=== PATIENT | female | born 1975 | race Hispanic/Latino ===

== ENCOUNTER → 2021-06-09 | Outpatient (CLI) | payer OTHER | END | disposition home or self-care (01) | LOC: RAH 07:58 | PROVIDERS: ATTEND Internal Medicine | DX: K80.20 Calculus of gallbladder without cholecystitis without obstruction (principal); K76.0 Fatty (change of) liver, not elsewhere classified | CPT/HCPCS: 76705 ==

== ENCOUNTER 2021-10-21 19:45 | Emergency (ER) | payer OTHER ==
[~2021-10-21] VITALS: Ht 154.9 cm; Wt 102.5 kg
[2021-10-21] MEDS ORDERED: NAPROXEN 250 MG TAB PO ONE (21:00)
[2021-10-21] MEDS ORDERED: CYCLOBENZAPRINE HCL 10 MG TABLET PO ONE (21:00)
[2021-10-21] MEDS ORDERED: CYCL-309 PO (22:46)
[2021-10-21] MEDS ORDERED: MELO7.5T12 PO (22:46)
[2021-10-21 22:55] VITALS: BP 129/73
== END 2021-10-21 22:56 | disposition home or self-care (01) ==
LOC: EDH 19:45
DX: S16.1XXA Strain of muscle, fascia and tendon at neck level, initial encounter (principal); S39.012A Strain of muscle, fascia and tendon of lower back, initial encounter; J45.909 Unspecified asthma, uncomplicated; Z79.1 Long term (current) use of non-steroidal anti-inflammatories (NSAID); V49.49XA Driver injured in collision with other motor vehicles in traffic accident, initial encounter; Y93.89 Activity, other specified; Y92.89 Other specified places as the place of occurrence of the external cause; Y99.8 Other external cause status
CPT/HCPCS: 70450; 71045; 72125; 72131

== ENCOUNTER 2022-07-02 20:59 | Emergency (ER) | payer BC, OTHER ==
[~2022-07-02] VITALS: Ht 154.9 cm; Wt 103.4 kg
[~2022-07-02 20:59] MED LIST: CYCL-309 PO; MELO7.5T12 PO
[2022-07-02 21:01] VITALS: BP 124/81
[2022-07-02] MEDS ORDERED: CLINDAMYCIN 150 MG CAP PO ONE (21:30)
[2022-07-02] MEDS ORDERED: CLIN-141 PO (21:33)
== END 2022-07-02 21:46 | disposition home or self-care (01) ==
LOC: EDH 20:59
DX: L03.211 Cellulitis of face (principal); J45.909 Unspecified asthma, uncomplicated; K21.9 Gastro-esophageal reflux disease without esophagitis; Z79.1 Long term (current) use of non-steroidal anti-inflammatories (NSAID)

== ENCOUNTER 2022-08-10 00:21 | Emergency (ER) | payer BC, OTHER ==
[~2022-08-10] VITALS: Ht 154.9 cm; Wt 102.5 kg
[~2022-08-10 00:21] MED LIST changes: +CLIN-141 PO
[2022-08-10 00:53] LABS: BASOPHILS % (AUTO) 0.6 % (0.0-5.0); EOSINOPHILS % (AUTO) 2.4 % (0.0-8.0); HEMATOCRIT 41.3 % (36-48); MEAN CORPUSCULAR HEMOGLOBIN 28.9 pg (27.0-33.0); MEAN CORPUSCULAR HGB CONC 33.7 g/dL (32.0-36.0); MEAN CORPUSCULAR VOLUME 85.9 fL (79-99); MONOCYTES % (AUTO) 9.2 % (3.0-13.0); NEUTROPHILS % (AUTO) 50.6 % (40.0-77.0); PLATELET COUNT (AUTO) 234 K/uL (130-400); RED BLOOD CELL COUNT(AUTO) 4.81 MIL/uL (4.00-5.50); RED CELL DISTRIBUTION WIDTH 13.2 % (11.0-15.5); WHITE BLOOD COUNT (AUTO) 9.1 K/uL (4.8-10.8)
[2022-08-10 00:54] LABS: APPEARANCE,URINE CLOUDY (CLEAR); BILIRUBIN,URINE NEGATIVE (NEGATIVE); COLOR,URINE YELLOW (YELLOW); GLUCOSE, URINE (UA) NEGATIVE (NEGATIVE); KETONES,URINE NEGATIVE (NEGATIVE); LEUKOCYTE ESTERASE ,URINE 500 Leu/uL (NEGATIVE); NITRATE,URINE NEGATIVE (NEGATIVE); OCCULT BLOOD,URINE MODERATE (NEGATIVE); PROTEIN,URINE 10 mg/dL (NEGATIVE); UROBILINOGEN,URINE 0.2 mg/dL (0.2-1.0)
[2022-08-10 01:00] LABS: MUCUS,URINE RARE LPF (None Seen); SQUAMOUS EPITHELIAL CELL,UR FEW /HPF (0-2); WBC,URINE TNTC /HPF (0-1)
[2022-08-10 01:06] LABS: POTASSIUM 4.8 mmol/L (3.5-5.1)
[2022-08-10 01:11] LABS: ALBUMIN 3.5 g/dL (3.5-5.0); TOTAL PROTEIN, SERUM 7.4 g/dL (6.0-8.3)
[2022-08-10 01:12] LABS: BACTERIA,URINE Rare /HPF (None Seen)
[2022-08-10] MEDS ORDERED: NITROFURANTOIN MONOHYD/M-CRYST 100 MG CAPSULE PO ONE (02:00)
[2022-08-10] MEDS ORDERED: PHENAZOPYRIDINE HCL 200 MG TABLET PO ONE (02:00)
[2022-08-10] MEDS ORDERED: MACR100 PO (02:03)
[2022-08-10] MEDS ORDERED: PHEN-847 PO (02:03)
[2022-08-10 02:07] VITALS: BP 124/77
== END 2022-08-10 02:12 | disposition home or self-care (01) ==
LOC: EDH 00:21
DX: N39.0 Urinary tract infection, site not specified (principal); J45.909 Unspecified asthma, uncomplicated; Z79.1 Long term (current) use of non-steroidal anti-inflammatories (NSAID)
CPT/HCPCS: 36415; 80053; 81001; 85025; 87088

== ENCOUNTER 2024-09-02 17:31 | Emergency (ER) | payer SELFPAY ==
[~2024-09-02] VITALS: Ht 154.9 cm; Wt 109.8 kg
[~2024-09-02 17:31] MED LIST changes: +MACR100 PO; +PHEN-847 PO
[2024-09-02 17:59] LABS: BASOPHILS # (AUTO) 0.02 K/uL (0.00-0.20); BASOPHILS % (AUTO) 0.2 % (0.0-5.0); EOSINOPHILS # (AUTO) 0.35 K/uL (0.00-0.70); EOSINOPHILS % (AUTO) 3.7 % (0.0-8.0); HEMATOCRIT 41.5 % (36-48); IMMATURE GRANULOCYTE ABSOLUTE 0.03 K/uL (0-1); LYMPHOCYTES # (AUTO) 1.7 K/uL (1.0-4.8); LYMPHOCYTES % (AUTO) 17.9 % (21.0-51.0); MEAN CORPUSCULAR HEMOGLOBIN 29.3 pg (27.0-33.0); MEAN CORPUSCULAR HGB CONC 32.8 g/dL (32.0-36.0); MEAN CORPUSCULAR VOLUME 89.4 fL (79-99); MONOCYTES # (AUTO) 0.5 K/uL (0.1-1.0); MONOCYTES % (AUTO) 5.7 % (3.0-13.0); NEUTROPHILS # (AUTO) 6.8 K/uL (1.8-7.7); NEUTROPHILS % (AUTO) 72.2 % (40.0-77.0); PLATELET COUNT (AUTO) 202 K/uL (130-400); RED BLOOD CELL COUNT(AUTO) 4.64 MIL/uL (4.00-5.50); RED CELL DISTRIBUTION WIDTH 13.5 % (11.0-15.5); WHITE BLOOD COUNT (AUTO) 9.5 K/uL (4.8-10.8)
[2024-09-02 18:12] LABS: CREATININE 0.8 mg/dL (0.5-1.0); POTASSIUM 4.2 mmol/L (3.5-5.1)
[2024-09-02 18:17] LABS: SARS-CoV-2, RNA, NAAT NEGATIVE SARS CoV-2 (NEGATIVE)
[2024-09-02 18:22] LABS: INFLUENZA TYPE A Negative For Type A (NEGATIVE); INFLUENZA TYPE B Negative For Type B (NEGATIVE)
[2024-09-02] MEDS: Solu-medROL 125MG VIAL IVP ONE (18:25)
[2024-09-02 19:09] VITALS: PULSE 72; RESP 21
[2024-09-02] MEDS: IpraTROPium/alBUTERol SULFATE 3 ML SOLUTION IH ONE (19:09)
[2024-09-02] MEDS ORDERED: BENZ-39 PO (20:16)
[2024-09-02] MEDS ORDERED: AZIT250T9 PO (20:16)
[2024-09-02] MEDS ORDERED: METH4TAB3 PO (20:16)
[2024-09-02 21:13] VITALS: BP 106/59; PULSE 70; RESP 18; TEMP 98.5; O2SAT 97
== END 2024-09-02 21:23 | disposition home or self-care (01) ==
LOC: EDH 17:31
DX: J18.9 Pneumonia, unspecified organism (principal); J45.909 Unspecified asthma, uncomplicated; Z79.1 Long term (current) use of non-steroidal anti-inflammatories (NSAID); Z20.822 Contact with and (suspected) exposure to COVID-19
CPT/HCPCS: 99285; 96374; 71045; 87635; 80048; 85025; 87804 ×2; 36415; 93005; 94640; J2919

== ENCOUNTER 2025-01-02 06:49 | Inpatient (IN) | payer BC ==
[~2025-01-02] VITALS: Ht 162.6 cm; Wt 90.9 kg
[~2025-01-02 06:49] MED LIST changes: +AZIT250T9 PO; +BENZ-39 PO; +METH4TAB3 PO
[2025-01-02] MEDS: ibuPROFEN 600 MG TABLET PO ONE (07:35)
[2025-01-02 07:37] LABS: COVID19 (SARS ANTIGEN RAPID) PRESUMPTIVE NEGATIVE (NEGATIVE); INFLUENZA TYPE B Negative For Type B (NEGATIVE)
[2025-01-02 07:38] LABS: HEMATOCRIT 44.2 % (36-48); MEAN CORPUSCULAR HEMOGLOBIN 28.8 pg (27.0-33.0); MEAN CORPUSCULAR HGB CONC 32.4 g/dL (32.0-36.0); MEAN CORPUSCULAR VOLUME 89.1 fL (79-99); PLATELET COUNT (AUTO) 181 K/uL (130-400); RED BLOOD CELL COUNT(AUTO) 4.96 MIL/uL (4.00-5.50); RED CELL DISTRIBUTION WIDTH 13.6 % (11.0-15.5); WHITE BLOOD COUNT (AUTO) 10.8 K/uL (4.8-10.8)
[2025-01-02 07:41] LABS: CARBON DIOXIDE 32 mmol/L (21-32); CHLORIDE 99 mmol/L (101-111); GLOMERULAR FILTR. RATE CALC 69 mL/min (>90); GLUCOSE,RANDOM 141 mg/dL (70-105); POTASSIUM 3.7 mmol/L (3.5-5.1); SODIUM SERUM 137 mmol/L (136-145); UREA NITROGEN, BLOOD 8 mg/dL (7-18)
[2025-01-02 07:42] LABS: BASOPHILS # (AUTO) 0.02 K/uL (0.00-0.20); BASOPHILS % (AUTO) 0.2 % (0.0-5.0); EOSINOPHILS # (AUTO) 0.05 K/uL (0.00-0.70); EOSINOPHILS % (AUTO) 0.5 % (0.0-8.0); IMMATURE GRANULOCYTE ABSOLUTE 0.06 K/uL (0-1); LYMPHOCYTES # (AUTO) 1.5 K/uL (1.0-4.8); LYMPHOCYTES % (AUTO) 13.8 % (21.0-51.0); MONOCYTES # (AUTO) 0.9 K/uL (0.1-1.0); MONOCYTES % (AUTO) 8.6 % (3.0-13.0); NEUTROPHILS # (AUTO) 8.4 K/uL (1.8-7.7); NEUTROPHILS % (AUTO) 76.4 % (40.0-77.0)
[2025-01-02 07:43] LABS: INR 0.95 (0.85-1.15); PROTHROMBIN TIME 10.7 SEC (9.6-11.6)
[2025-01-02 07:45] LABS: PARTIAL THROMBOPLASTIN TIME 31.4 SEC (26.3-35.5)
[2025-01-02 07:50] LABS: ALANINE AMINOTRANSFERASE 71 U/L (12-78); ALBUMIN 3.3 g/dL (3.5-5.0); ASPARTATE AMINOTRANSFERASE 57 U/L (10-37); BILIRUBIN,TOTAL 0.8 mg/dL (0.2-1.0); CREATINE KINASE, TOTAL 82 U/L (21-232); TOTAL PROTEIN, SERUM 7.9 g/dL (6.0-8.3)
[2025-01-02 07:57] LABS: INFLUENZA TYPE A Positive For Type A (NEGATIVE); RAPID GROUP A STREP positive (NEGATIVE)
--- NOTE | 2025-01-02 08:31 | ERN ---
General Chief Complaint: Shortness of Breath Stated Complaint: DIFFICULTY BREATHING Time Seen by MD: 07:12 Source: patient History of Present Illness Initial Comments PATIENT IS A 49-YEAR-OLD FEMALE COMING IN TO BE EVALUATED FOR COUGH AND CONGESTION. PATIENT STATES THE SYMPTOMS BEGAN ONE WEEK AGO. LONG WITH THE HE STATES HE IS A HAVE FEVER AND CHILLS ON AND OFF. Allergies: Coded Allergies: acetaminophen (Unverified Allergy, Unknown, 10/21/21) montelukast (Unverified Allergy, Unknown, 08/10/22) Home Meds Active Scripts Benzonatate (Tessalon Perles) 100 Mg Cap, 100 MG PO TID for cough for 10 Days, #30 CAP 0 Refills Prov:JOSE CRAWLEY 09/02/24 Methylprednisolone (Medrol) 4 Mg Tab.ds.pk, 1 TAB PO AD for 6 Days, #21 TAB 0 Refills 6 on day 1 then reduce by one tablet daily until gone Prov:JOSE CRAWLEY 09/02/24 Azithromycin (Azithromycin) 250 Mg Tablet, 1 TAB PO AD for 5 Days, #6 TAB 0 Refills 2 the first day followed by 1 for days 2-5 Prov:JOSE CRAWLEY 09/02/24 Phenazopyridine HCl (Pyridium) 200 Mg Tab, 200 MG PO TIDP PRN for bladder pain, #9 TAB 0 Refills TAKE WITH FOOD TO PREVENT STOMACH UPSET. Prov:ASHUTOSH BUSBY MD 08/10/22 Nitrofurantoin/Nitrofuran Mac (Macrobid) 100 Mg Cap, 1 CAP PO BID for 7 Days, #14 CAP 0 Refills Prov:ASHUTOSH BUSBY MD 08/10/22 Clindamycin HCl (Clindamycin HCl) 300 Mg Capsule, 1 CAP PO QID for 10 Days, #40 CAP 0 Refills Prov:YASMEEN CELESTIN 07/02/22 Cyclobenzaprine HCl (Cyclobenzaprine HCl) 10 Mg Tablet, 10 MG PO TIDP, #20 TAB 0 Refills Prov:JOHN ANDRE MD 10/21/21 Meloxicam (Mobic) 7.5 Mg Tablet, 7.5 MG PO DAILY, #10 TAB 0 Refills Prov:JOHN ANDRE MD 10/21/21 Past Medical History Past Medical History: Asthma Past Surgical History: Social History Social History: Other Female( History) LMP: Aug 26, 2024 ROS Dictation CONSTITUTIONAL: CHILLS, N FEVER, NO WEAKNESS, NO DIAPHORESIS, NO MALAISE. HEAD/FACE: NO SIGNS OF TRAUMA. EENT: NO EYE PAIN, NO BLURRED VISION, NO TEARING, NO DOUBLE VISION, NO EAR PAIN, NO EAR DISCHARGE, NO NOSE PAIN, NO NASAL CONGESTION, NO THROAT PAIN, NO THROAT SWELLING, NO MOUTH PAIN. RESPIRATORY: COUGH, NO ORTHOPNEA, NO SOB, NO STRIDOR, NO WHEEZING. CARDIOVASCULAR: NO CHEST PAIN, NO EDEMA, NO PALPITATIONS, NO SYNCOPE. GASTROINTESTINAL/ABDOMINAL: NO ABDOMINAL PAIN, NO CONSTIPATION, NO DIARRHEA, NO NAUSEA, NO VOMITING. GENITOURINARY: NO ABNORMAL DISCHARGE, NO DYSURIA, NO FREQUENT URINATION, NO HEMATURIA. NO COMPLAINTS OF PAIN IN THE GENITALS. MUSCULOSKELETAL: NO BACK PAIN, NO GOUT, NO JOINT PAIN, NO JOINT SWELLING, NO MUSCLE PAIN, NO MUSCLE STIFFNESS, NO NECK PAIN. INTEGUMENTARY: NO CHANGE IN COLOR, NO CHANGE IN HAIR/NAILS, NO DRYNESS, NO LESION, NO LUMPS, NO RASH. NEUROLOGICAL/PSYCH: NO ANXIETY, NOT DEPRESSED, NO EMOTIONAL PROBLEM, NO HEADACHE, NO NUMBNESS, NO PRE-EXISTING DEFICIT, NO HISTORY OF SEIZURES, NO TREMORS, NO WEAKNESS. HEMATOLOGIC/LYMPHATIC: NOT ANEMIC, NO HISTORY OF BLOOD CLOTS, NO APPARENT BLEEDING, NO BRUISING, GLANDS NOT SWOLLEN. ALL SYSTEMS NEGATIVE, EXCEPT NOTED. Physical Exam Physical Exam Dictation VITAL SIGNS: REVIEWED. GENERAL APPEARANCE: ALERT, ORIENTED X3, NO ACUTE DISTRESS, OBESE. HEAD AND FACE: NON-TRAUMATIC. EYES: PERRL, PINK CONJUNCTIVAS, EYELID NO TRAUMA, ANTERIOR CHAMBER CLEAR. EARS: PINNAS INTACT AND NO SIGNS OF TRAUMA OR ERYTHEMA. EAR CANALS CLEAR AND NO DISCHARGE. TMS NO ERYTHEMA. NOSE: NO DISCHARGE, NO BLEEDING. OROPHARYNX: MOUTH NORMAL, TEETH NO CARIES, TONGUE PINK. PHARYNX CLEAR, NO ERYTHEMA. TONSILS NO EXUDATES, NO ABSCESSES NOTED. MUCOUS MEMBRANE MOIST. NECK: SUPPLE, NON-TENDER, NO THYROMEGALY, NO MASSES, NO JVD, NO BRUITS. BREAST: DEFERRED. CHEST: NO TENDERNESS, NO CREPITUS, NO PARADOXICAL MOVEMENT, NO RETRACTIONS. LUNGS: CLEAR, WELL-VENTILATED, SYMMETRIC, NO RALES, WHEEZING, RHONCHI, NO STRIDOR, GOOD BREATH SOUNDS BILATERALLY. HEART: REGULAR RATE, REGULAR RHYTHM, NO MURMUR, NO GALLOPS. VASCULAR: NO PERIPHERAL EDEMA. ABDOMEN: SOFT, POSITIVE BOWEL SOUNDS, NONDISTENDED, NO GUARDING, NONTENDER, NO REBOUND, NO MASSES NO HEPATOMEGALY, NO SPLENOMEGALY, NO ROSS'S SIGN, NO HERNIAS. RECTAL: DEFERRED. GENITAL: DEFERRED. NEUROLOGICAL: NORMAL SPEECH, GROSS MOTOR FUNCTION INTACT, GROSS SENSORY FUNCTION INTACT. MUSCULOSKELETAL: NECK NONTENDER, FULL RANGE OF MOTION, BACK NONTENDER, FULL RANGE OF MOTION. EXTREMITIES: NONTENDER, FULL RANGE OF MOTION. SKIN: COLOR PINK, DRY, NO TURGOR, NO RASH, NO LACERATIONS, NO ABRASIONS, NO CONTUSIONS. LYMPHATICS: DEFERRED. Results Laboratory and Microbiology Lab and Micro Result Laboratory Tests Test 01/02/25 06:58 01/02/25 07:20 Influenza Type A Antigen Positive For Type A Influenza Type B Antigen Negative For Type B SARS-CoV-2 Antigen (Rapid) PRESUMPTIVE NEGATIVE Group A Streptococcus Rapid positive (NEGATIVE) *A White Blood Count 10.8 K/uL (4.8-10.8) Red Blood Count 4.96 MIL/uL (4.00-5.50) Hemoglobin 14.3 g/dL (12.0-16.0) Hematocrit 44.2 % (36-48) Mean Corpuscular Volume 89.1 fL (79-99) Mean Corpuscular Hemoglobin 28.8 pg (27.0-33.0) Mean Corpuscular Hemoglobin Concent 32.4 g/dL (32.0-36.0) Red Cell Distribution Width 13.6 % (11.0-15.5) Platelet Count 181 K/uL (130-400) Mean Platelet Volume 9.9 fL (7.5-10.5) Immature Granulocyte % (Auto) 0.5 % (0-1) Neutrophils (%) (Auto) 76.4 % (40.0-77.0) Lymphocytes (%) (Auto) 13.8 % (21.0-51.0) L Monocytes (%) (Auto) 8.6 % (3.0-13.0) Eosinophils (%) (Auto) 0.5 % (0.0-8.0) Basophils (%) (Auto) 0.2 % (0.0-5.0) Neutrophils # (Auto) 8.4 K/uL (1.8-7.7) H Lymphocytes # (Auto) 1.5 K/uL (1.0-4.8) Monocytes # (Auto) 0.9 K/uL (0.1-1.0) Eosinophils # (Auto) 0.05 K/uL (0.00-0.70) Basophils # (Auto) 0.02 K/uL (0.00-0.20) Absolute Immature Granulocyte (auto 0.06 K/uL (0-1) Nucleated Red Blood Cells 0.0 % (0.0-0.19) Prothrombin Time 10.7 SEC (9.6-11.6) Prothromb Time International Ratio 0.95 (0.85-1.15) Activated Partial Thromboplast Time 31.4 SEC (26.3-35.5) Sodium Level 137 mmol/L (136-145) Potassium Level 3.7 mmol/L (3.5-5.1) Chloride Level 99 mmol/L (101-111) L Carbon Dioxide Level 32 mmol/L (21-32) Blood Urea Nitrogen 8 mg/dL (7-18) Creatinine 1.0 mg/dL (0.5-1.0) Glomerular Filtration Rate Calc 69 mL/min (>90) Random Glucose 141 mg/dL (70-105) H Total Calcium 8.2 mg/dL (8.5-10.1) L Magnesium Level 1.80 mg/dL (1.80-2.40) Total Bilirubin 0.8 mg/dL (0.2-1.0) Aspartate Amino Transf (AST/SGOT) 57 U/L (10-37) H Alanine Aminotransferase (ALT/SGPT) 71 U/L (12-78) Alkaline Phosphatase 102 U/L (50-136) Total Creatine Kinase 82 U/L (21-232) Troponin I High Sensitivity < 4.0 ng/L (4-50) L B-Type Natriuretic Peptide 7 pg/mL (0-100) Total Protein 7.9 g/dL (6.0-8.3) Albumin 3.3 g/dL (3.5-5.0) L Labs Reviewed?: Yes EKG/XRAY/US/CT/MRI EKG Comment 01/02/2025 TIME 7:20 A.M. VENTRICULAR RATE [address] WAVE ELEVATION OR DEPRESSION X-RAY Comment [facility] [address] [place] [address] IMAGING REPORT Signed PATIENT: TYSHAWN ORTA MR#: [id number] : 1975 SEX: F AGE: 49 LOCATION: [facility] ORDER 9 STATUS: REG ER REPORT#: [id number] SERVICE 7 REASON: sob ORDERING PHYSICIAN: KAREN COLES MD PROCEDURE: CXR1VW - CHEST 1VW Exam Type: CHEST 1VW Clinical Information: sob Comparison: None Findings: The lungs are clear of infiltrates. The heart is enlarged. Bony and soft tissue structures of the chest wall are unremarkable. IMPRESSION: Cardiomegaly. Clear lungs. DICTATED BY: RADHA MONTEZ MD DATE: 01/02/25833 ELECTRONICALLY SIGNED BY: RADHA MONTEZ MD DATE: 01/02/25842 MDM MDM: DIFFERENTIAL DIAGNOSIS: FLU, COVID, STREP, URI, PATIENT IS A 49-YEAR-OLD FEMALE COMING IN TO BE EVALUATED FOR COUGH AND CONGESTION. PATIENT STATES IT HAS BEEN BEGAN THREE DAYS AGO. LABORATORY WORKUP POSITIVE FOR STREP AND FLU A. PATIENT WILL BE DISCHARGED IN STABLE CONDITION WITH A DIAGNOSIS OF FLU AND STREP. MEDICATION FOR SYMPTOMATIC RELIEF WILL BE PROVIDED. I DID ADVISED HER APPROPRIATE FOLLOW UP WITH PCP IN 1-2 DAYS. ED Course Orders Procedure Category Date Status Time Covid19 (Sars Antigen LAB 01/02/25 Complete Rapid) 06:55 Influenza Type A & B, LAB 01/02/25 Complete Rapid 06:55 Rapid (Group A Strep) LAB 01/02/25 Complete 06:55 Ibuprofen 600 Mg PHA 01/02/25 Complete Tablet (Motrin) 07:00 Prothrombin Time With LAB 01/02/25 Complete INR 07:18 B-Type Natriuretic LAB 01/02/25 Complete Peptide 07:18 Chest 1vw RAD 01/02/25 Resulted 07:18 12 Lead Ekg Tracing- EKG 01/02/25 Logged Technical 07:18 Magnesium LAB 01/02/25 Complete 07:18 Urinalysis Profile LAB 01/02/25 Logged 07:18 Partial LAB 01/02/25 Complete Thromboplastin Time 07:18 12 Lead Ekg Tracing- EKG 01/02/25 Logged Technical 07:19 Cardiac Panel LAB 01/02/25 Complete 07:18 Comprehensive LAB 01/02/25 Complete Metabolic Panel 07:18 Cbc With Differential LAB 01/02/25 Complete 07:20 Ipratropium/Albuterol PHA 01/02/25 Complete Neb (Duoneb) 08:30 Current Medications Medications (Trade) Dose Ordered Sig/Shin Route PRN Reason Start Time Stop Time Status Last Admin Dose Admin Albuterol (DUOneb) 2 udvial ONCE ONCE IH 01/02/25 08:30 01/02/25 08:31 DC 01/02/25 09:11 Ibuprofen (moTRIN) 600 mg ONCE ONCE PO 01/02/25 07:00 01/02/25 07:01 DC 01/02/25 07:35 Vital Signs Date Time Temp Pulse Resp B/P (MAP) Pulse Ox O2 Delivery O2 Flow Rate FiO2 01/02/25 10:15 98.2 84 16 99/48 97 Room Air* 0 21 01/02/25 09:15 66 22 01/02/25 09:15 98.2 80 16 100/68 97 Room Air* 0 21 01/02/25 08:15 100.0 74 16 104/56 97 Room Air* 0 01/02/25 07:35 98.2 01/02/25 07:14 100.2 76 16 96/50 97 Room Air* 0 01/02/25 06:51 100.9 81 18 98/61 97 Room Air 0 DX & DISP Disposition: Discharge Departure Impression: Primary Impression: Influenza Additional Impression: Strep pharyngitis Condition: Stable Scripts Prednisone (Prednisone) 5 Mg Tablet 1 TAB PO BID for 7 Days, #14 TAB 0 Refills Prov: KAREN COLES MD 01/02/25 Oseltamivir Phosphate (Tamiflu) 75 Mg Cap 1 CAP PO BID for 5 Days, #10 CAP 0 Refills Prov: KAREN COLES MD 01/02/25 Amoxicillin/Potassium Clav (Amox Tr-K Clv 875-125 mg Tab) 875 Mg-125 Mg Tablet 1 TAB PO BID for 10 Days, #20 TAB 0 Refills Prov: KAREN COLES MD 01/02/25 Additional Instructions: FOLLOW-UP WITH PRIMARY CARE PROVIDER IN 1 TO 2 DAYS. TAKE MEDICATIONS DIRECTED HERE IN THE EMERGENCY ROOM. OKAY TO CONTINUE HOME MEDICATIONS UNLESS OTHERWISE DISCUSSED DURING YOUR VISIT IN THE EMERGENCY ROOM TODAY. RETURN TO YOUR NEAREST EMERGENCY ROOM IF SYMPTOMS WORSEN OR IF THERE IS NO IMPROVEMENT. CALL 911 IF YOU NEED IMMEDIATE ASSISTANCE. TAKE TYLENOL [id number] NEEDED AND IF NO CONTRAINDICATIONS ARE PRESENT. INCREASE ORAL HYDRATION. A WOUND CULTURE OR URINE CULTURE WAS ORDERED HERE IN THE EMERGENCY ROOM DEPARTMENT PLEASE FOLLOW-UP WITH PRIMARY CARE PROVIDER AND ADVISE THEM TO GET REPEAT PORTS FROM OUR FACILITY. IF YOU HAD ANY ABDIAZIZ WRAP/SPLINTS THAT WERE APPLIED HERE, PLEASE DO NOT REMOVE THEM UNTIL YOU SEE YOUR PRIMARY CARE OR SPECIALTY. REFERRALS: Referrals: PRANAV HERNANDEZ MD (PCP) Time of Disposition: 11:21 KAREN COLES MD Jan 02, 2025 08:31
--- NOTE | 2025-01-02 08:43 | HMCIMG ---
Exam Type: CHEST 1VW Clinical Information: sob Comparison: None Findings: The lungs are clear of infiltrates. The heart is enlarged. Bony and soft tissue structures of the chest wall are unremarkable. IMPRESSION: Cardiomegaly. Clear lungs.
[2025-01-02] MEDS: IpraTROPium/alBUTERol SULFATE 3 ML SOLUTION IH ONE (09:11)
[2025-01-02 09:15] VITALS: PULSE 66; RESP 22
[2025-01-02 09:45] VITALS: TEMP 98.9
[2025-01-02] MEDS ORDERED: AMOX1TAB16 PO (11:22)
[2025-01-02] MEDS ORDERED: OSEL75 PO (11:22)
[2025-01-02] MEDS ORDERED: PRED5TAB PO (11:22)
[2025-01-02] MEDS: 0.9%NACL 1000ML 1,000 ML IV ONE (11:30)
--- NOTE | 2025-01-02 15:19 | EKG ---
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
[2025-01-02] MEDS: Solu-medROL 125MG VIAL IVP ONE (15:25)
[2025-01-02] MEDS: hydrOXYzine 50MG VIAL 50 MG/ML VIAL IM STA (15:25)
[2025-01-02] MEDS: ALBUTEROL 0.083% 2.5 MG/3 ML INH IH ONE (15:37)
[2025-01-02 15:38] VITALS: PULSE 78; RESP 22
[2025-01-02 15:55] LABS: ABG BASE EXCESS -1.9 mmol/L (-2.0-3.0); ABG HCO3 21.7 mmol/L (21.0-28.0); ABG OXYGEN SATURATION 96.8 % (94.0-98.0); ABG PCO2 34 mmHg (32-45); ABG PH 7.427 (7.350-7.450); CARBON MONOXIDE 0.8 % (0.5-1.5); DEVICE COMMENT RR; HHb 3.2; PO2, ARTERIAL BG 82.3 mmHg (83.0-108.0); VENT MODE, BG RA (ROOM AIR)
[2025-01-02] MEDS ORDERED: ibuPROFEN 600 MG TABLET PO PRN (16:30)
[2025-01-02] MEDS ORDERED: PoTASSium chloRIDE 20MEQ/100ML 100 ML IV PRN (16:30)
[2025-01-02] MEDS ORDERED: MAGNESIUM 2GM PREMIX 50ML 50 ML IV SCH (16:30)
[2025-01-02] MEDS ORDERED: acetaMINOPHEN 325 MG TAB PO PRN (16:30)
[2025-01-02] MEDS ORDERED: [UNRECOGNIZED DRUG - REMARK] MISC SCH (16:30)
[2025-01-02] MEDS ORDERED: PoTASSium chl 10% ELIXIR 20MEQ 20 MEQ/15 ML UDCUP PO PRN (16:30)
[2025-01-02] MEDS ORDERED: ondanSETRON 4MG INJ IVP PRN (16:30)
[2025-01-02] MEDS ORDERED: PoTASSium chloRIDE 20MEQ ER 20 MEQ ERTAB PO PRN (16:30)
[2025-01-02] MEDS: PANTOPrazole 40 MG TAB DR PO SCH (16:30)
[2025-01-02] MEDS ORDERED: guaiFENesin-DM 200/20MG 10ML PO PRN (16:30)
[2025-01-02] MEDS: OSELTAMIVIR PHOSPHATE 75 MG CAP PO SCH (17:50)
[2025-01-02] MEDS: 0.9%NACL 1000ML 1,000 ML IV SCH (17:50)
[2025-01-02] MEDS: PANTOPrazole 40 MG/VIAL IVP SCH (17:51)
[2025-01-02] MEDS: THIAMINE HCL 100 MG/ML 2ML VIAL IVP SCH (17:51)
[2025-01-02] MEDS: CEFTRIAXONE 2GM VIAL IVPB SCH (17:51)
[2025-01-02 17:52] LABS: HEMOGLOBIN A1C 6.8 % (4.0-6.0)
[2025-01-02 19:25] VITALS: PULSE 61; RESP 20; O2SAT 98
[2025-01-02] MEDS: IpraTROPium/alBUTERol SULFATE 3 ML SOLUTION IH SCH (19:25)
--- NOTE | 2025-01-02 20:08 | HP ---
[facility] HISTORY AND PHYSICAL Date of Service: Jan 02, 2025 Time of Service: 19:50 HISTORY OF PRESENT ILLNESS: Date of service: 01/02/2025 49-year-old female with history of uncontrolled asthma who presented to the ER for further evaluation of wheezing, cough, congestion and shortness of breath. Symptoms have been ongoing for about 3-4 days and have progressively getting worse. Patient reports having subjective fevers, chills, malaise on and off. Oral intake remains poor. Patient reports having sick contact with who has flu-like symptoms as well. Patient reports having previous history of flu vaccination. With regards to asthma, patient is only on rescue inhaler at home. Denies any previous history of asthma exacerbation or need for inpatient hospital stay. Reports having mild sore throat and dyspnea on exertion. Denies any chest pain or pleurisy. Patient has been observed in the ER for about 8 hours and receive nebulizer treatment and IV steroids and reports that she continues to feel short of breath with wheezing. ER physician has requested patient to be hospitalized. Further workup showed patient was noted to be flu A positive and was also noted to have group a streptococcal pharyngitis. Patient will be admitted for further management of acute asthma exacerbation with underlying influenza a bronchitis and streptococcal pharyngitis. Patient will receive IV antibiotics and IV steroids for asthma flare. We will see how patient progresses in the next 48-72 hours. REVIEW OF SYSTEMS CONSTITUTIONAL: Asthenia, malaise, fevers, chills NEUROLOGICAL: Denies headache, amaurosis fugax, motor weakness, sensory deficit, vertigo/spinning sensation, gait abnormalities, or tremors. ENT: No hearing loss, otalgia, otorrhea, rhinitis, rhinorrhea, hoarseness, or sore throat. CARDIOVASCULAR: Denies any exertional angina, dyspnea on exertion, orthopnea, paroxysmal nocturnal dyspnea, palpitations, life-threatening arrhythmias, claudication. PULMONARY: Productive cough with shortness of breath, wheezing SLEEP: Denies morning headaches, daytime somnolence or napping. Denies difficulty falling asleep, staying asleep, waking from sleep. Denies knowledge of snoring. GASTROINTESTINAL: Denies any type of dysphagia to either liquids or solids. Denies nausea, vomiting, pyrosis, early satiety, abdominal pain, diarrhea, constipation, or changes in stool consistency or caliber. Denies coffee-ground emesis, hematemesis, hematochezia, or melanotic stools. GENITOURINARY: Denies frequency, urgency, nocturia, hematuria or incontinence (Storage/Irritative symptoms.) Low urinary stream, straining to void, urinary intermittency or hesitancy, splitting of the voiding stream, terminal dribbling. ENDOCRINOLOGIC: Denies polyuria, polydipsia, polyphagia or heat/cold intolerances. HEMATOLOGIC: Denies thrombophilia/previous clots, or coagulopathy/bleeding disorders. ONCOLOGIC: Denies personal history of malignancy. DERMATOLOGIC: Denies rashes or pruritus. PSYCHIATRIC: Denies any suicidal or homicidal ideation. Denies hallucinations. PAST MEDICAL HISTORY: History of uncontrolled asthma PAST SURGICAL HISTORY: x4 PAST SOCIAL HISTORY: Denies active smoking or alcohol consumption FAMILY HISTORY: Denies pertinent family history Allergies: Patient has allergic reaction to acetaminophen, montelukast, onion, tomato Medications: Patient reports being on outpatient rescue inhaler with albuterol Coded Allergies: tomato (Verified Allergy, Severe, 01/02/25) onion (Verified Allergy, Intermediate, rash, 01/02/25) acetaminophen (Unverified Allergy, Unknown, 10/21/21) montelukast (Unverified Allergy, Unknown, 08/10/22) PHYSICAL EXAM GENERAL APPEARANCE: The patient is awake, alert, and oriented, in no acute cardiopulmonary distress. NEUROLOGICAL: Cranial nerves II-XII grossly intact. Motor is 5/5 in bilateral upper and lower extremities proximal to distal. No sensory deficits. HEENT: Face is symmetric. Pupils are equal and reactive. Extraocular movements are intact. NECK: Supple. No JVD. No thyromegaly. No submental, submandibular, pre-/postauricular, occipital or supraclavicular lymphadenopathy. CHEST: Normal chest expansion. No Telemetry. LUNGS: Rhonchorous breath sounds with mild wheezing noted of the bilateral lung bases CARDIOVASCULAR: Regular. S1 and S2 normal. No appreciable rubs, murmurs or gallops. ABDOMEN: Soft, nontender, and nondistended. There is no rebound, voluntary guarding, or rigidity. : Deferred. No Saenz. EXTREMITIES: Non-edematous and not cyanotic. No clubbing. Good capillary refill. SKIN: No skin breakdown. Vital Sign (Last 24 Hours) 2/15/25 2/15/25 2/15/25 10:15 13:00 19:25 Temp 98.2 Pulse 61 Resp 20 B/P (MAP) 104/56 Pulse Ox 97 O2 Delivery N/A Room Air O2 Flow Rate 0.0 FiO2 21 LABS: Laboratory: Test 01/02/25 17:27 01/02/25 15:54 01/02/25 07:20 01/02/25 06:58 Range/Units Erythrocyte Sedimentation Rate 40 H 0-20 MM/HR Hemoglobin A1c 6.8 H 4.0-6.0 % Estimated Average Glucose (eAG) 148 H 70-126 mg/dL Lactic Acid Level 1.0 0.8-2.5 mmol/L C-Reactive Protein, Quantitative 164.70 H 0.5-3.0 mg/L Procalcitonin 0.19 0.05-0.5 ng/mL Thyroid Stimulating Hormone (TSH) 3.78 H 0.36-3.74 uIU/mL Blood Gas Specimen Type Arterial Arterial Blood pH 7.427 7.350-7.450 Arterial Blood Partial Pressure CO2 34 32-45 mmHg Arterial Blood Partial Pressure O2 82.3 L 83.0-108.0 mmHg Arterial Blood HCO3 21.7 21.0-28.0 mmol/L Arterial Blood Oxygen Saturation 96.8 94.0-98.0 % Arterial Blood Base Excess -1.9 -2.0-3.0 mmol/L Hemoglobin (Blood Gas) 14.4 12.0-16.0 g/dL Sodium (Blood Gas) 136 136-145 MMOL/L Bedside Potassium (Blood Gas) 3.8 3.4-4.5 MMOL/L Bedside Chloride (Blood Gas) 105 98-107 MMOL/L Bedside Glucose (Blood Gas) 110 H 65-95 MG/DL Bedside Ionized Calcium (Blood Gas) 1.09 L 1.15-1.33 MMOL/L Bedside Lactic Acid (Blood Gas) 1.23 H 0.36-0.75 MMOL/L Blood Gas Temperature 37.0 35.5-37.0 CELSIUS Blood Gas Vent Mode RA ROOM AIR FiO2 21.0 % Blood Gas Specimen Comment RR White Blood Count 10.8 4.8-10.8 K/uL Red Blood Count 4.96 4.00-5.50 MIL/uL Hemoglobin 14.3 12.0-16.0 g/dL Hematocrit 44.2 36-48 % Mean Corpuscular Volume 89.1 79-99 fL Mean Corpuscular Hemoglobin 28.8 27.0-33.0 pg Mean Corpuscular Hemoglobin Concent 32.4 32.0-36.0 g/dL Red Cell Distribution Width 13.6 11.0-15.5 % Platelet Count 181 130-400 K/uL Mean Platelet Volume 9.9 7.5-10.5 fL Immature Granulocyte % (Auto) 0.5 0-1 % Neutrophils (%) (Auto) 76.4 40.0-77.0 % Lymphocytes (%) (Auto) 13.8 L 21.0-51.0 % Monocytes (%) (Auto) 8.6 3.0-13.0 % Eosinophils (%) (Auto) 0.5 0.0-8.0 % Basophils (%) (Auto) 0.2 0.0-5.0 % Neutrophils # (Auto) 8.4 H 1.8-7.7 K/uL Lymphocytes # (Auto) 1.5 1.0-4.8 K/uL Monocytes # (Auto) 0.9 0.1-1.0 K/uL Eosinophils # (Auto) 0.05 0.00-0.70 K/uL Basophils # (Auto) 0.02 0.00-0.20 K/uL Absolute Immature Granulocyte (auto 0.06 0-1 K/uL Nucleated Red Blood Cells 0.0 0.0-0.19 % Prothrombin Time 10.7 9.6-11.6 SEC Prothromb Time International Ratio 0.95 0.85-1.15 Activated Partial Thromboplast Time 31.4 26.3-35.5 SEC Sodium Level 137 136-145 mmol/L Potassium Level 3.7 3.5-5.1 mmol/L Chloride Level 99 L 101-111 mmol/L Carbon Dioxide Level 32 21-32 mmol/L Blood Urea Nitrogen 8 7-18 mg/dL Creatinine 1.0 0.5-1.0 mg/dL Glomerular Filtration Rate Calc 69 >90 mL/min Random Glucose 141 H 70-105 mg/dL Total Calcium 8.2 L 8.5-10.1 mg/dL Magnesium Level 1.80 1.80-2.40 mg/dL Total Bilirubin 0.8 0.2-1.0 mg/dL Aspartate Amino Transf (AST/SGOT) 57 H 10-37 U/L Alanine Aminotransferase (ALT/SGPT) 71 12-78 U/L Alkaline Phosphatase 102 50-136 U/L Total Creatine Kinase 82 21-232 U/L Troponin I High Sensitivity < 4.0 L 4-50 ng/L B-Type Natriuretic Peptide 7 0-100 pg/mL Total Protein 7.9 6.0-8.3 g/dL Albumin 3.3 L 3.5-5.0 g/dL Influenza Type A Antigen Positive For Type A *A NEGATIVE Influenza Type B Antigen Negative For Type B NEGATIVE SARS-CoV-2 Antigen (Rapid) PRESUMPTIVE NEGATIVE NEGATIVE Group A Streptococcus Rapid positive *A NEGATIVE Current Medications Medications (Trade) Dose Ordered Sig/Shin Route PRN Reason Start Time Stop Time Status Last Admin Dose Admin Acetaminophen (TYLenol 325MG TAB) 650 mg Q6H PRN PO MILD PAIN (1-3) 01/02/25 16:30 01/02/25 16:26 DC Albuterol (DUOneb) 1 udvial [id number] IH 01/02/25 18:00 02/01/25 17:59 01/02/25 19:25 1 UDVIAL Ceftriaxone Sodium (Rocephin 2gm Inj) 2 gm Q24H IVPB 01/02/25 16:30 01/12/25 16:29 01/02/25 17:51 2 GM Enoxaparin Sodium (Lovenox) 40 mg DAILY SQ 01/03/25 09:00 02/02/25 08:59 Guaifenesin/ Dextromethorphan (RobiTUSSin DM 200/20MG 10ML) 10 ml Q6H PRN PO COUGH 01/02/25 16:30 02/01/25 16:29 Hydroxyzine HCl (ATArax 50MG INJ) 50 mg ONCE STAT IM 01/02/25 15:13 01/02/25 15:15 DC 01/02/25 15:25 50 MG Ibuprofen (moTRIN) 600 mg Q8H PRN PO fever/ MODERATE PAIN (4-6) 01/02/25 16:30 02/01/25 16:29 Magnesium Sulfate 50 ml @ 0 mls/hr PROTOCOL IV 01/02/25 16:30 02/01/25 16:29 Methylprednisolone Sodium Succinate (Solu-medROL 40MG) 40 mg Q8H IVP 01/02/25 21:00 02/01/25 20:59 Ondansetron HCl (zoFRAN 4MG INJ) 4 mg Q6H PRN IVP NAUSEA/VOMITING 01/02/25 16:30 02/01/25 16:29 Oseltamivir Phosphate (Tamiflu) 75 mg Q12H PO 01/02/25 16:30 01/07/25 16:29 01/02/25 17:50 75 MG Pantoprazole Sodium (PROTonix 40MG INJ) 40 mg Q24H IVP 01/02/25 16:30 02/01/25 16:29 01/02/25 17:51 40 MG Pantoprazole Sodium (PROTonix 40MG TAB) 40 mg Q24H PO 01/02/25 16:30 02/01/25 16:29 Pharmacy Profile Note (Pharmacy Communication) PATIENT ALLERGY TO TYLENOL Q30MIN MISC 01/02/25 16:30 01/02/25 16:29 DC Potassium Chloride 100 ml @ 100 mls/hr AD PRN IV POTASSIUM PROTOCOL 01/02/25 16:30 02/01/25 16:29 Potassium Chloride (K-Dur/Klor-Con 20meq) 20 meq AD PRN PO POTASSIUM PROTOCOL 01/02/25 16:30 02/01/25 16:29 Potassium Chloride (KCl 10% Elixir 20meq/15ml) 20 meq AD PRN PO POTASSIUM PROTOCOL 01/02/25 16:30 02/01/25 16:29 Sodium Chloride 1,000 ml @ 75 mls/hr [id number] IV 01/02/25 16:30 02/01/25 16:29 01/02/25 17:50 75 MLS/HR Thiamine HCl (Vitamin B-1) 100 mg Q24H IVP 01/02/25 16:30 02/01/25 16:29 01/02/25 17:51 100 MG DIAGNOSTICS / RADIOLOGY: SERVICE [id number] REASON: sob ORDERING PHYSICIAN: KAREN COLES MD PROCEDURE: CXR1VW - CHEST 1VW Exam Type: CHEST 1VW Clinical Information: sob Comparison: None Findings: The lungs are clear of infiltrates. The heart is enlarged. Bony and soft tissue structures of the chest wall are unremarkable. IMPRESSION: Cardiomegaly. Clear lungs. DICTATED BY: RADHA MONTEZ MD DATE: 01/02/25833 ELECTRONICALLY SIGNED BY: RADHA MONTEZ MD DATE: 01/02/25842 ASSESSMENT: Acute asthma exacerbation, POA Acute influenza bronchitis, POA Streptococcal pharyngitis, POA Dehydration, POA Suspected obstructive sleep apnea, POA Obesity, POA History of uncontrolled asthma, POA PLAN: Patient will be admitted to medical-surgical floor under telemetry monitoring We will place patient on IV Solu-Medrol 40 mg q.8 hours for management of acute asthma exacerbation We will start patient on Rocephin 2 g daily along with doxycycline as well to cover for superimposed bacterial bronchitis Patient will be started on Tamiflu 75 mg b.i.d. for management of influenza bronchitis Respiratory cultures and blood cultures will be obtained We will start patient on IV hydration with 75 mL/hour We will start patient on CPAP therapy tonight for management of obstructive sleep apnea Due to underlying pulmonary comorbidities and active respiratory infection, we will request consultation with pulmonology for close monitoring All labs will be repeated in the morning Patient will be started on DuoNebs q.6 hours All labs will be repeated in the morning GI prophylaxis Protonix, DVT prophylaxis with Lovenox Anticipate hospitalization for at least 48-72 hours Date of service: 01/02/2025 Plan of care was discussed with patient and family at bedside, Tyron Schuster MD Advanced Care Planning: Which of the following were discussed: Hospice care: Yes __ No _X_ Therapeutic options: Yes _X_ No __ Advance directives: Yes _X_ No __ Other discussions: Discussed with who?: Patient Voluntary nature of this service was explained to the patient? Yes _x_ No __ Amount of time spent: 20 minutes TYRON SCHUSTER MD Jan 02, 2025 20:08
[2025-01-02] MEDS: Solu-medROL 40MG VIAL IVP SCH (20:34)
[2025-01-02 20:45] VITALS: BP 108/78; PULSE 70; RESP 19; TEMP 98.8
[2025-01-02 21:11] LABS: APPEARANCE,URINE CLEAR (CLEAR); BILIRUBIN,URINE NEGATIVE (NEGATIVE); COLOR,URINE LIGHT-YELLOW (YELLOW); GLUCOSE, URINE (UA) NEGATIVE (NEGATIVE); KETONES,URINE NEGATIVE (NEGATIVE); LEUKOCYTE ESTERASE ,URINE NEGATIVE Leu/uL (NEGATIVE); NITRATE,URINE NEGATIVE (NEGATIVE); OCCULT BLOOD,URINE NEGATIVE (NEGATIVE); PH,URINE 5.5 (5.0-8.0); PROTEIN,URINE NEGATIVE (NEGATIVE)
[2025-01-02 21:15] LABS: ADD UA MICROSCOPIC NO
[2025-01-03] VITALS (18 sets, daily range): BP systolic 106–146; BP diastolic 52–81; PULSE 48–82; RESP 10–26; TEMP 96.3–98.6; O2SAT 95–99
[2025-01-03 08:13] LABS: BASOPHILS # (AUTO) 0.01 K/uL (0.00-0.20); BASOPHILS % (AUTO) 0.1 % (0.0-5.0); HEMATOCRIT 42.7 % (36-48); IMMATURE GRANULOCYTE ABSOLUTE 0.04 K/uL (0-1); LYMPHOCYTES # (AUTO) 0.7 K/uL (1.0-4.8); LYMPHOCYTES % (AUTO) 9.5 % (21.0-51.0); MEAN CORPUSCULAR HEMOGLOBIN 28.4 pg (27.0-33.0); MEAN CORPUSCULAR HGB CONC 32.1 g/dL (32.0-36.0); MEAN CORPUSCULAR VOLUME 88.6 fL (79-99); MONOCYTES # (AUTO) 0.2 K/uL (0.1-1.0); MONOCYTES % (AUTO) 2.9 % (3.0-13.0); NEUTROPHILS # (AUTO) 6.7 K/uL (1.8-7.7); PLATELET COUNT (AUTO) 180 K/uL (130-400); RED BLOOD CELL COUNT(AUTO) 4.82 MIL/uL (4.00-5.50); RED CELL DISTRIBUTION WIDTH 13.7 % (11.0-15.5); WHITE BLOOD COUNT (AUTO) 7.7 K/uL (4.8-10.8)
[2025-01-03] MEDS: ENOXAPARIN SODIUM 40 MG/0.4 ML SYRINGE SQ SCH (08:28)
[2025-01-03 08:37] LABS: ALBUMIN 2.6 g/dL (3.5-5.0); BILIRUBIN,TOTAL 0.3 mg/dL (0.2-1.0); CREATININE 0.8 mg/dL (0.5-1.0); MAGNESIUM 1.9 mg/dL (1.80-2.40); TOTAL PROTEIN, SERUM 7.2 g/dL (6.0-8.3)
[2025-01-03 09:48] LABS: BAND NEUTROPHILS % (MANUAL) 24 % (0-2); LYMPHOCYTES % (MANUAL) 9 % (22-44); MAN.DIFF COMMENT-IMPRESSION MANUAL DIFFERENTIAL; MONOCYTES % (MANUAL) 1 % (2-9); PLATELET MORPHOLOGY COMMENT ADEQUATE; SEGMENTED NEUTROPHILS % 66 % (40-70); TOTAL CELLS COUNTED 100; WBC MORPHOLOGY CONSISTENT W/DIFF
--- NOTE | 2025-01-03 12:13 | PN ---
[facility] PROGRESS NOTE Date of Service: Jan 03, 2025 Time of Service: 12:13 SUBJECTIVE: [ ] 41-year-old female with past medical history of asthma, uncontrolled was admitted to the medical-surgical unit with diagnosis of acute asthma exacerbation, acute influenza bronchitis, Streptococcus pharyngitis and dehydration. Today at bedside evaluation patient is alert and oriented x3. she is sitting at bedside currently satting 98% on room air. The rest of the vital signs also stable, afebrile. She was coughing on and off during my assessment. CBC and CMP are stable. Continue Rocephin2 g IV daily, [id number] mg p.o. b.i.d. and Solu-Medrol 40 mg IV b.i.d.. Starting IS hourly as tolerated. CPT with Beba. Pending blood and respiratory cultures. Stop IV fluids. Advanced to GI soft diet. REVIEW OF SYSTEMS CONSTITUTIONAL: Asthenia, malaise, fevers, chills NEUROLOGICAL: Denies headache, amaurosis fugax, motor weakness, sensory deficit, vertigo/spinning sensation, gait abnormalities, or tremors. ENT: No hearing loss, otalgia, otorrhea, rhinitis, rhinorrhea, hoarseness, or sore throat. CARDIOVASCULAR: Denies any exertional angina, dyspnea on exertion, orthopnea, paroxysmal nocturnal dyspnea, palpitations, life-threatening arrhythmias, claudication. PULMONARY: Productive cough with shortness of breath, wheezing SLEEP: Denies morning headaches, daytime somnolence or napping. Denies difficulty falling asleep, staying asleep, waking from sleep. Denies knowledge of snoring. GASTROINTESTINAL: Denies any type of dysphagia to either liquids or solids. Denies nausea, vomiting, pyrosis, early satiety, abdominal pain, diarrhea, c onstipation, or changes in stool consistency or caliber. Denies coffee-ground emesis, hematemesis, hematochezia, or melanotic stools. GENITOURINARY: Denies frequency, urgency, nocturia, hematuria or incontinence (Storage/Irritative symptoms.) Low urinary stream, straining to void, urinary intermittency or hesitancy, splitting of the voiding stream, terminal dribbling. ENDOCRINOLOGIC: Denies polyuria, polydipsia, polyphagia or heat/cold intolerances. HEMATOLOGIC: Denies thrombophilia/previous clots, or coagulopathy/bleeding disorders. ONCOLOGIC: Denies personal history of malignancy. DERMATOLOGIC: Denies rashes or pruritus. PSYCHIATRIC: Denies any suicidal or homicidal ideation. Denies hallucinations. PHYSICAL EXAM GENERAL APPEARANCE: The patient is awake, alert, and oriented, in no acute ca rdiopulmonary distress. NEUROLOGICAL: Cranial nerves II-XII grossly intact. Motor is 5/5 in bilateral upper and lower extremities proximal to distal. No sensory deficits. HEENT: Face is symmetric. Pupils are equal and reactive. Extraocular movements are intact. NECK: Supple. No JVD. No thyromegaly. No submental, submandibular, pre- /postauricular, occipital or supraclavicular lymphadenopathy. CHEST: Normal chest expansion. No Telemetry. LUNGS: Rhonchorous breath sounds with mild wheezing noted of the bilateral lung bases CARDIOVASCULAR: Regular. S1 and S2 normal. No appreciable rubs, murmurs or gallops. ABDOMEN: Soft, nontender, and nondistended. There is no rebound, voluntary guarding, or rigidity. : Deferred. No Saenz. EXTREMITIES: Non-edematous and not cyanotic. No clubbing. Good capillary ref ill. SKIN: No skin breakdown. Vital Signs (last 8hr) Date Time Temp Pulse Resp B/P (MAP) Pulse Ox O2 Delivery O2 Flow Rate FiO2 01/03/25 11:37 98.4 62 18 114/73 98 Room Air 01/03/25 11:12 65 20 01/03/25 07:44 97.5 60 18 110/52 97 Room Air 01/03/25 06:46 51 20 N/A Room Air 0.0 21 01/03/25 06:44 51 20 LABS: Laboratory: Test 01/03/25 12:05 01/03/25 07:50 01/02/25 20:24 01/02/25 17:27 Range/Units Whole Blood Glucose 214 H 70-110 MG/DL White Blood Count 7.7 4.8-10.8 K/uL Red Blood Count 4.82 4.00-5.50 MIL/uL Hemoglobin 13.7 12.0-16.0 g/dL Hematocrit 42.7 36-48 % Mean Corpuscular Volume 88.6 79-99 fL Mean Corpuscular Hemoglobin 28.4 27.0-33.0 pg Mean Corpuscular Hemoglobin Concent 32.1 32.0-36.0 g/dL Red Cell Distribution Width 13.7 11.0-15.5 % Platelet Count 180 130-400 K/uL Mean Platelet Volume 9.5 7.5-10.5 fL Immature Granulocyte % (Auto) 0.5 0-1 % Neutrophils (%) (Auto) 87.0 H 40.0-77.0 % Lymphocytes (%) (Auto) 9.5 L 21.0-51.0 % Monocytes (%) (Auto) 2.9 L 3.0-13.0 % Eosinophils (%) (Auto) 0.0 0.0-8.0 % Basophils (%) (Auto) 0.1 0.0-5.0 % Neutrophils # (Auto) 6.7 1.8-7.7 K/uL Lymphocytes # (Auto) 0.7 L 1.0-4.8 K/uL Monocytes # (Auto) 0.2 0.1-1.0 K/uL Eosinophils # (Auto) 0.00 0.00-0.70 K/uL Basophils # (Auto) 0.01 0.00-0.20 K/uL Absolute Immature Granulocyte (auto 0.04 0-1 K/uL Segmented Neutrophils % 66 40-70 % Band Neutrophils % 24 H 0-2 % Lymphocytes % (Manual) 9 L 22-44 % Monocytes % (Manual) 1 L 2-9 % Nucleated Red Blood Cells 0.0 0.0-0.19 % Differential Comment MANUAL DIFFERENTIAL White Cell Morphology Comment CONSISTENT W/DIFF Platelet Morphology Comment ADEQUATE Red Blood Cell Morphology ANISO 1+ Sodium Level 140 136-145 mmol/L Potassium Level 4.0 3.5-5.1 mmol/L Chloride Level 106 101-111 mmol/L Carbon Dioxide Level 27 21-32 mmol/L Blood Urea Nitrogen 9 7-18 mg/dL Creatinine 0.8 0.5-1.0 mg/dL Glomerular Filtration Rate Calc 91 >90 mL/min Random Glucose 213 H 70-105 mg/dL Total Calcium 8.1 L 8.5-10.1 mg/dL Magnesium Level 1.90 1.80-2.40 mg/dL Total Bilirubin 0.3 0.2-1.0 mg/dL Aspartate Amino Transf (AST/SGOT) 28 10-37 U/L Alanine Aminotransferase (ALT/SGPT) 47 12-78 U/L Alkaline Phosphatase 85 50-136 U/L Total Protein 7.2 6.0-8.3 g/dL Albumin 2.6 L 3.5-5.0 g/dL Urine Color LIGHT-YELLOW YELLOW Urine Appearance CLEAR CLEAR Urine pH 5.5 5.0-8.0 Urine Specific Calhoun 1.004 1.001-1.031 Urine Protein NEGATIVE NEGATIVE mg/dL Urine Glucose (UA) NEGATIVE NEGATIVE mg/dL Urine Ketones NEGATIVE NEGATIVE mg/dL Urine Occult Blood NEGATIVE NEGATIVE Urine Nitrate NEGATIVE NEGATIVE Urine Bilirubin NEGATIVE NEGATIVE mg/dL Urine Urobilinogen 2.0 H 0.2-1.0 mg/dL Urine Leukocyte Esterase NEGATIVE NEGATIVE Linh/uL Erythrocyte Sedimentation Rate 40 H 0-20 MM/HR Hemoglobin A1c 6.8 H 4.0-6.0 % Estimated Average Glucose (eAG) 148 H 70-126 mg/dL Lactic Acid Level 1.0 0.8-2.5 mmol/L C-Reactive Protein, Quantitative 164.70 H 0.5-3.0 mg/L Procalcitonin 0.19 0.05-0.5 ng/mL Thyroid Stimulating Hormone (TSH) 3.78 H 0.36-3.74 uIU/mL Test 01/02/25 15:54 01/02/25 07:20 01/02/25 06:58 Range/Units Blood Gas Specimen Type Arterial Arterial Blood pH 7.427 7.350-7.450 Arterial Blood Partial Pressure CO2 34 32-45 mmHg Arterial Blood Partial Pressure O2 82.3 L 83.0-108.0 mmHg Arterial Blood HCO3 21.7 21.0-28.0 mmol/L Arterial Blood Oxygen Saturation 96.8 94.0-98.0 % Arterial Blood Base Excess -1.9 -2.0-3.0 mmol/L Hemoglobin (Blood Gas) 14.4 12.0-16.0 g/dL Sodium (Blood Gas) 136 136-145 MMOL/L Bedside Potassium (Blood Gas) 3.8 3.4-4.5 MMOL/L Bedside Chloride (Blood Gas) 105 98-107 MMOL/L Bedside Glucose (Blood Gas) 110 H 65-95 MG/DL Bedside Ionized Calcium (Blood Gas) 1.09 L 1.15-1.33 MMOL/L Bedside Lactic Acid (Blood Gas) 1.23 H 0.36-0.75 MMOL/L Blood Gas Temperature 37.0 35.5-37.0 CELSIUS Blood Gas Vent Mode RA ROOM AIR FiO2 21.0 % Blood Gas Specimen Comment RR Prothrombin Time 10.7 9.6-11.6 SEC Prothromb Time International Ratio 0.95 0.85-1.15 Activated Partial Thromboplast Time 31.4 26.3-35.5 SEC Total Creatine Kinase 82 21-232 U/L Troponin I High Sensitivity < 4.0 L 4-50 ng/L B-Type Natriuretic Peptide 7 0-100 pg/mL Influenza Type A Antigen Positive For Type A *A NEGATIVE Influenza Type B Antigen Negative For Type B NEGATIVE SARS-CoV-2 Antigen (Rapid) PRESUMPTIVE NEGATIVE NEGATIVE Group A Streptococcus Rapid positive *A NEGATIVE Current Medications Medications (Trade) Dose Ordered Sig/Shin Route PRN Reason Start Time Stop Time Status Last Admin Dose Admin Acetaminophen (TYLenol 325MG TAB) 650 mg Q6H PRN PO MILD PAIN (1-3) 01/02/25 16:30 01/02/25 16:26 DC Albuterol (DUOneb) 1 udvial [id number] IH 01/02/25 18:00 02/01/25 17:59 01/03/25 11:12 1 UDVIAL Ceftriaxone Sodium (Rocephin 2gm Inj) 2 gm Q24H IVPB 01/02/25 16:30 01/12/25 16:29 01/02/25 17:51 2 GM Enoxaparin Sodium (Lovenox) 40 mg DAILY SQ 01/03/25 09:00 02/02/25 08:59 Guaifenesin/ Dextromethorphan (RobiTUSSin DM 200/20MG 10ML) 10 ml Q6H PRN PO COUGH 01/02/25 16:30 02/01/25 16:29 Hydroxyzine HCl (ATArax 50MG INJ) 50 mg ONCE STAT IM 01/02/25 15:13 01/02/25 15:15 DC 01/02/25 15:25 50 MG Ibuprofen (moTRIN) 600 mg Q8H PRN PO fever/ MODERATE PAIN (4-6) 01/02/25 16:30 02/01/25 16:29 Insulin Human Regular (humuLIN R 100 UNIT/ML 3ML) INSULIN SLIDING SCAL... ACHS SQ 01/03/25 11:30 02/02/25 11:29 Magnesium Sulfate 50 ml @ 0 mls/hr PROTOCOL IV 01/02/25 16:30 02/01/25 16:29 Methylprednisolone Sodium Succinate (Solu-medROL 40MG) 40 mg Q8H IVP 01/02/25 21:00 02/01/25 20:59 01/03/25 05:11 40 MG Ondansetron HCl (zoFRAN 4MG INJ) 4 mg Q6H PRN IVP NAUSEA/VOMITING 01/02/25 16:30 02/01/25 16:29 Oseltamivir Phosphate (Tamiflu) 75 mg Q12H PO 01/02/25 16:30 01/07/25 16:29 01/03/25 05:11 75 MG Pantoprazole Sodium (PROTonix 40MG INJ) 40 mg Q24H IVP 01/02/25 16:30 02/01/25 16:29 01/02/25 17:51 40 MG Pantoprazole Sodium (PROTonix 40MG TAB) 40 mg Q24H PO 01/02/25 16:30 02/01/25 16:29 Pharmacy Profile Note (Pharmacy Communication) PATIENT ALLERGY TO TYLENOL Q30MIN MISC 01/02/25 16:30 01/02/25 16:29 DC Potassium Chloride 100 ml @ 100 mls/hr AD PRN IV POTASSIUM PROTOCOL 01/02/25 16:30 02/01/25 16:29 Potassium Chloride (K-Dur/Klor-Con 20meq) 20 meq AD PRN PO POTASSIUM PROTOCOL 01/02/25 16:30 02/01/25 16:29 Potassium Chloride (KCl 10% Elixir 20meq/15ml) 20 meq AD PRN PO POTASSIUM PROTOCOL 01/02/25 16:30 02/01/25 16:29 Sodium Chloride 1,000 ml @ 75 mls/hr [id number] IV 01/02/25 16:30 02/01/25 16:29 01/02/25 17:50 75 MLS/HR Thiamine HCl (Vitamin B-1) 100 mg Q24H IVP 01/02/25 16:30 02/01/25 16:29 01/02/25 17:51 100 MG DIAGNOSTICS / RADIOLOGY: [ ] ASSESSMENT: Acute respiratory failure secondary to Acute asthma exacerbation/acute influenza bronchitis, POA Acute influenza bronchitis, POA Streptococcal pharyngitis, POA Dehydration, POA improving Suspected obstructive sleep apnea, POA Obesity, POA History of uncontrolled asthma, POA PLAN: Continue admission in the medical-surgical unit Continue telemetry monitoring Advanced to GI soft diet and tolerating Titrating Solu-Medrol now at 40 mg IV b.i.d. Patient continues to cough on and off Continue supplemental O2 to keep O2 saturations above 92%, she is currently satting 98% on room air. Continue IV Rocephin2 g daily Continue Gqudivr84 mg p.o. b.i.d. Pending blood and respiratory cultures Starting IS, hourly as tolerated Starting CPT with DuoNebs Stop IV fluids Continue CPAP therapy tonight for management of obstructive sleep apnea Pulmonology team consulted Monitoring replace electrolytes Monitor a.m. labs, cultures PRN Treatment - Add when necessary meds for nausea, vomiting, pain, constipation, insomnia. DVT/GI prophylaxis- Continue Lovenox and Protonix at current doses. Full CODE STATUS This document was generated in part using voice recognition software, occasional wrong word or sound alike substitutions may have occurred due to the inherent limitations of voice recognition software. Read the chart carefully and recognize using context, where the substitutions have occurred. Although every effort was made to edit the content, esol teacher and typing errors may occur DALY CUELLAR Jan 03, 2025 12:13
[2025-01-03] MEDS: INSULIN humuLIN R 100 UNIT/ML 3ML SQ SCH (12:24)
--- NOTE | 2025-01-03 15:47 | CONS ---
[facility] CONSULTATION NOTE Date Patient Seen: Jan 03, 2025 Time of Visit: 15:40 Supervising Physician: DR. DHAVAL CRUZ Reason for Consultation: ASTHMA EXACERBATION Primary Care Physician: [ ] Outpatient Specialists: [ ] Inpatient Consults: [ ] PROBLEM LIST: 1. ASTHMA EXACERBATION 2. MORBID OBESITY 3. INFLUENZA A Positive POA 4. Strep group A positive POA HPI: 49-year-old female with history of uncontrolled asthma who presented to the ER for further evaluation of wheezing, cough, congestion and shortness of breath. Symptoms have been ongoing for about 3-4 days and have progressively getting worse. Patient reports having subjective fevers, chills, malaise on and off. Admitted for further evaluation, noted with exacerbation of asthma, found to be influenza positive and Strep group A positive she was started on Tamiflu, antibiotics, and nebulizer treatments, we will continue monitoring closely, she will be recommended to follow up as an outpatient at the clinic. PAST MEDICAL HX: see above PAST SURGICAL HX: noncontributory SOCIAL HISTORY: No tobacco, ETOH, or illicit drug use Coded Allergies: tomato (Verified Allergy, Severe, 01/02/25) onion (Verified Allergy, Intermediate, rash, 01/02/25) acetaminophen (Unverified Allergy, Unknown, 10/21/21) montelukast (Unverified Allergy, Unknown, 08/10/22) REVIEW OF SYSTEMS: 12 point ROS reviewed with patient. Pertinent positives mentioned above. Otherwise negative. PHYSICAL EXAM: GENERAL: alert, weak, awake oriented x 3 HEENT: EOMI, Sclera non icteric, moist mucosa NECK: Supple, no JVD, trachea midline LUNGS: Clear breath sounds bilaterally. No wheezes HEART: Regular rate and rhythm. Normal S1 and S2, without murmurs ABD: Abdomen soft, nontender. Bowel sounds present EXT: No clubbing cyanosis or edema NEURO: Alert and oriented to person, follows commands Vital Signs (last 8hr) Date Time Temp Pulse Resp B/P (MAP) Pulse Ox O2 Delivery O2 Flow Rate FiO2 01/03/25 11:37 98.4 62 18 114/73 98 Room Air 01/03/25 11:12 65 20 01/03/25 08:30 97 Room Air* 0 21 01/03/25 07:44 97.5 60 18 110/52 97 Room Air LABS: Hematology Labs: Test 01/03/25 07:50 2/15/25 17:27 Range/Units White Blood Count 7.7 4.8-10.8 K/uL Red Blood Count 4.82 4.00-5.50 MIL/uL Hemoglobin 13.7 12.0-16.0 g/dL Hematocrit 42.7 36-48 % Mean Corpuscular Volume 88.6 79-99 fL Mean Corpuscular Hemoglobin 28.4 27.0-33.0 pg Mean Corpuscular Hemoglobin Concent 32.1 32.0-36.0 g/dL Red Cell Distribution Width 13.7 11.0-15.5 % Platelet Count 180 130-400 K/uL Mean Platelet Volume 9.5 7.5-10.5 fL Immature Granulocyte % (Auto) 0.5 0-1 % Neutrophils (%) (Auto) 87.0 H 40.0-77.0 % Lymphocytes (%) (Auto) 9.5 L 21.0-51.0 % Monocytes (%) (Auto) 2.9 L 3.0-13.0 % Eosinophils (%) (Auto) 0.0 0.0-8.0 % Basophils (%) (Auto) 0.1 0.0-5.0 % Neutrophils # (Auto) 6.7 1.8-7.7 K/uL Lymphocytes # (Auto) 0.7 L 1.0-4.8 K/uL Monocytes # (Auto) 0.2 0.1-1.0 K/uL Eosinophils # (Auto) 0.00 0.00-0.70 K/uL Basophils # (Auto) 0.01 0.00-0.20 K/uL Absolute Immature Granulocyte (auto 0.04 0-1 K/uL Segmented Neutrophils % 66 40-70 % Band Neutrophils % 24 H 0-2 % Lymphocytes % (Manual) 9 L 22-44 % Monocytes % (Manual) 1 L 2-9 % Nucleated Red Blood Cells 0.0 0.0-0.19 % Differential Comment MANUAL DIFFERENTIAL White Cell Morphology Comment CONSISTENT W/DIFF Platelet Morphology Comment ADEQUATE Red Blood Cell Morphology ANISO 1+ Erythrocyte Sedimentation Rate 40 H 0-20 MM/HR Chemistry Labs: Test 01/03/25 12:05 01/03/25 07:50 01/02/25 17:27 01/02/25 07:20 Range/Units Whole Blood Glucose 214 H 70-110 MG/DL Sodium Level 140 136-145 mmol/L Potassium Level 4.0 3.5-5.1 mmol/L Chloride Level 106 101-111 mmol/L Carbon Dioxide Level 27 21-32 mmol/L Blood Urea Nitrogen 9 7-18 mg/dL Creatinine 0.8 0.5-1.0 mg/dL Glomerular Filtration Rate Calc 91 >90 mL/min Random Glucose 213 H 70-105 mg/dL Total Calcium 8.1 L 8.5-10.1 mg/dL Magnesium Level 1.90 1.80-2.40 mg/dL Total Bilirubin 0.3 0.2-1.0 mg/dL Aspartate Amino Transf (AST/SGOT) 28 10-37 U/L Alanine Aminotransferase (ALT/SGPT) 47 12-78 U/L Alkaline Phosphatase 85 50-136 U/L Total Protein 7.2 6.0-8.3 g/dL Albumin 2.6 L 3.5-5.0 g/dL Hemoglobin A1c 6.8 H 4.0-6.0 % Estimated Average Glucose (eAG) 148 H 70-126 mg/dL Lactic Acid Level 1.0 0.8-2.5 mmol/L C-Reactive Protein, Quantitative 164.70 H 0.5-3.0 mg/L Procalcitonin 0.19 0.05-0.5 ng/mL Thyroid Stimulating Hormone (TSH) 3.78 H 0.36-3.74 uIU/mL Total Creatine Kinase 82 21-232 U/L Troponin I High Sensitivity < 4.0 L 4-50 ng/L B-Type Natriuretic Peptide 7 0-100 pg/mL Coagulation Labs: Test 01/02/25 07:20 Range/Units Prothrombin Time 10.7 9.6-11.6 SEC Prothromb Time International Ratio 0.95 0.85-1.15 Activated Partial Thromboplast Time 31.4 26.3-35.5 SEC DIAGNOSTICS / RADIOLOGY RESULTS: [ ] PLAN Continue with antibiotic therapy Continue with nebulizers continue with Tamiflu NEURO: Minimize central acting medications as possible. Maintain fall precautions, adequate lighting during the day PULMONARY: Supplemental 02 as needed. Maintain aspiration precautions at all times CARDIOVASCULAR: Follow hemodynamics. Vital signs per facility protocol GI & NUTRITION: Continue with nutritional support. Continue stool softeners and laxatives as needed. KIDNEYS & ELECTROLYTES: Strict monitoring of intake, output and overall fluid balance. Avoid nephrotoxic medications to the extent possible. Medications to be dosed according to renal function. Monitor electrolytes and replace as needed ENDOCRINE: Maintain blood glucose between 100-180 at all times. Hypoglycemia protocol in place INFECTIOUS DISEASE: Trend temperature, WBC and procalcitonin level Follow cultures, deescalate antibiotics as soon as possible. Panculture if new onset fever ONCOLOGY/HEMATOLOGY/COAGULATION: Monitor for s/s of bleeding Monitor hemoglobin, coagulation studies as needed SKIN: Pressure ulcer prevention per facility protocol Specialty mattress ORTHO/REHAB: Continue PT/OT Prophylaxis: Continue GI and DVT prophylaxis Code Status: Full Resuscitation Disposition: TBD ATTESTATION BY PHYSICIAN Documentation assistance provided by a scribe, information recorded by the scribe was done at my direction and has been reviewed and validated by me." DHAVAL CRUZ MD I personally scribed for DHAVAL CRUZ MD ([email or web address]) on 01/03/25 at 15:47. Electronically submitted by Yu Huston ([id number]). DHAVAL CRUZ MD Jan 03, 2025 15:47
[2025-01-03] MEDS: Solu-medROL 40MG VIAL IVP SCH (20:09)
[2025-01-04] VITALS (14 sets, daily range): BP systolic 97–138; BP diastolic 60–81; PULSE 51–75; RESP 16–20; TEMP 97.8–99; O2SAT 95–98
[2025-01-04 05:06] LABS: BASOPHILS # (AUTO) 0.01 K/uL (0.00-0.20); BASOPHILS % (AUTO) 0.1 % (0.0-5.0); HEMATOCRIT 36.7 % (36-48); IMMATURE GRANULOCYTE ABSOLUTE 0.04 K/uL (0-1); LYMPHOCYTES # (AUTO) 1.2 K/uL (1.0-4.8); LYMPHOCYTES % (AUTO) 12.2 % (21.0-51.0); MEAN CORPUSCULAR HEMOGLOBIN 28.4 pg (27.0-33.0); MEAN CORPUSCULAR VOLUME 86.2 fL (79-99); MONOCYTES # (AUTO) 0.3 K/uL (0.1-1.0); MONOCYTES % (AUTO) 3.3 % (3.0-13.0); NEUTROPHILS # (AUTO) 8.2 K/uL (1.8-7.7); PLATELET COUNT (AUTO) 209 K/uL (130-400); RED BLOOD CELL COUNT(AUTO) 4.26 MIL/uL (4.00-5.50); RED CELL DISTRIBUTION WIDTH 14.1 % (11.0-15.5); WHITE BLOOD COUNT (AUTO) 9.7 K/uL (4.8-10.8)
[2025-01-04 05:30] LABS: CREATININE 0.9 mg/dL (0.5-1.0); POTASSIUM 4.7 mmol/L (3.5-5.1)
--- NOTE | 2025-01-04 08:36 | NUR ---
DC PLAN VISITED WITH PATIENT. PATIENT LIVES WITH AUNT. INDEPENDENT ABLE TO PERFORM ADL'S. NO SERVICES OR DME'S. FEELS SAFE TO RETURN HOME. Addendum: 01/04/25 at 0837 by MILTON LEE RN CM Amended: Links added.
--- NOTE | 2025-01-04 11:02 | PN ---
[facility] PROGRESS NOTE Date Patient Seen: Jan 04, 2025 Time of Visit: 10:56 Supervising Physician: [Dr Rivas Primary Care Physician: [ ] Outpatient Specialists: [ ] Inpatient Consults: SAMANTHA PROBLEM LIST: 1. ACUTE ON CHRONIC ASTHMA EXACERBATION 2. MORBID OBESITY 3. INFLUENZA A Positive POA 4. Strep group A positive POA Plan Summary: Supplemental oxygen as needed Wean off as tolerated Duo nebs as needed BiPAP nightly and p.r.n. Continue high-dose steroids Continue IV antibiotics Montelukast 10 daily 6 minute walk test prior to discharge Outpatient follow up in Pulmonary Clinic for AMOL evaluation and treatment INTERVAL HISTORY: 49-year-old female with history of uncontrolled asthma who presented to the ER for further evaluation of wheezing, cough, congestion and shortness of breath. Symptoms have been ongoing for about 3-4 days and have progressively getting worse. Patient reports having subjective fevers, chills, malaise on and off. Admitted for further evaluation, noted with exacerbation of asthma, found to be influenza positive and Strep group A positive she was started on Tamiflu, antibiotics, and nebulizer treatments, we will c ontinue monitoring closely, she will be recommended to follow up as an outpatient at the clinic. 01/04 - patient is seen sitting up in bed continues to be weak. Patient does not appear to be in any acute distress as she is currently on room air and denies dyspnea. Patient does report using BiPAP overnight. No acute changes reported overnight. She does report feeling weak and fatigued. Informed the patient that is secondary to influenza A. Vital signs are stable. Labs are within normal limits. Most recent ABGs are within normal limits. Chest x-ray shows clear lungs. Recommend continue antibiotics. Continue Solu-Medrol times 24 hours and transition to prednisone 40 mg daily x5 days. Continue Tamiflu as directed . Duo nebs as needed. BiPAP nightly. Obtain a 6 minute walk test for home O2 eval prior to discharge. Patient has been advised to follow up in Pulmonary Clinic once discharged for AMOL evaluation and treatment. REVIEW OF SYSTEMS: 12 point ROS reviewed with patient. Pertinent positives mentioned above. Otherwise negative. PHYSICAL EXAM: GENERAL: alert, weak, awake oriented x 3 HEENT: EOMI, Sclera non icteric, moist mucosa NECK: Supple, no JVD, trachea midline LUNGS: Clear breath sounds bilaterally. No wheezes HEART: Regular rate and rhythm. Normal S1 and S2, without murmurs ABD: Abdomen soft, nontender. Bowel sounds present EXT: No clubbing cyanosis or edema NEURO: Alert and oriented to person, follows commands Vital Signs (last 8hr) Date Time Temp Pulse Resp B/P (MAP) Pulse Ox O2 Delivery O2 Flow Rate FiO2 01/04/25 08:30 62 20 N/A Room Air 21 01/04/25 08:00 97.9 64 19 113/64 95 Room Air 01/04/25 08:00 95 Room Air* 0 21 01/04/25 07:04 55 20 01/04/25 03:31 75 16 30 01/04/25 03:20 99.0 51 19 138/81 98 BIPAP LABS: Hematology Labs: Test 01/04/25 04:54 01/03/25 07:50 01/02/25 17:27 Range/Units White Blood Count 9.7 # 4.8-10.8 K/uL Red Blood Count 4.26 4.00-5.50 MIL/uL Hemoglobin 12.1 12.0-16.0 g/dL Hematocrit 36.7 36-48 % Mean Corpuscular Volume 86.2 79-99 fL Mean Corpuscular Hemoglobin 28.4 27.0-33.0 pg Mean Corpuscular Hemoglobin Concent 33.0 32.0-36.0 g/dL Red Cell Distribution Width 14.1 11.0-15.5 % Platelet Count 209 130-400 K/uL Mean Platelet Volume 10.4 7.5-10.5 fL Immature Granulocyte % (Auto) 0.4 0-1 % Neutrophils (%) (Auto) 84.0 H 40.0-77.0 % Lymphocytes (%) (Auto) 12.2 L 21.0-51.0 % Monocytes (%) (Auto) 3.3 3.0-13.0 % Eosinophils (%) (Auto) 0.0 0.0-8.0 % Basophils (%) (Auto) 0.1 0.0-5.0 % Neutrophils # (Auto) 8.2 H 1.8-7.7 K/uL Lymphocytes # (Auto) 1.2 1.0-4.8 K/uL Monocytes # (Auto) 0.3 0.1-1.0 K/uL Eosinophils # (Auto) 0.00 0.00-0.70 K/uL Basophils # (Auto) 0.01 0.00-0.20 K/uL Absolute Immature Granulocyte (auto 0.04 0-1 K/uL Nucleated Red Blood Cells 0.0 0.0-0.19 % Segmented Neutrophils % 66 40-70 % Band Neutrophils % 24 H 0-2 % Lymphocytes % (Manual) 9 L 22-44 % Monocytes % (Manual) 1 L 2-9 % Differential Comment MANUAL DIFFERENTIAL White Cell Morphology Comment CONSISTENT W/DIFF Platelet Morphology Comment ADEQUATE Red Blood Cell Morphology ANISO 1+ Erythrocyte Sedimentation Rate 40 H 0-20 MM/HR Chemistry Labs: Test 01/04/25 04:54 01/03/25 15:56 01/03/25 07:50 01/02/25 17:27 Range/Units Sodium Level 142 136-145 mmol/L Potassium Level 4.7 3.5-5.1 mmol/L Chloride Level 108 101-111 mmol/L Carbon Dioxide Level 29 21-32 mmol/L Blood Urea Nitrogen 17 7-18 mg/dL Creatinine 0.9 0.5-1.0 mg/dL Glomerular Filtration Rate Calc 79 >90 mL/min Random Glucose 188 H 70-105 mg/dL Total Calcium 8.0 L 8.5-10.1 mg/dL Whole Blood Glucose 147 H 70-110 MG/DL Magnesium Level 1.90 1.80-2.40 mg/dL Total Bilirubin 0.3 0.2-1.0 mg/dL Aspartate Amino Transf (AST/SGOT) 28 10-37 U/L Alanine Aminotransferase (ALT/SGPT) 47 12-78 U/L Alkaline Phosphatase 85 50-136 U/L Total Protein 7.2 6.0-8.3 g/dL Albumin 2.6 L 3.5-5.0 g/dL Hemoglobin A1c 6.8 H 4.0-6.0 % Estimated Average Glucose (eAG) 148 H 70-126 mg/dL Lactic Acid Level 1.0 0.8-2.5 mmol/L C-Reactive Protein, Quantitative 164.70 H 0.5-3.0 mg/L Procalcitonin 0.19 0.05-0.5 ng/mL Thyroid Stimulating Hormone (TSH) 3.78 H 0.36-3.74 uIU/mL DIAGNOSTICS / RADIOLOGY RESULTS: PATIENT: TYSHAWN ORTA MR#: [id number] : 1975 SEX: F AGE: 49 LOCATION: [facility] ORDER 9 STATUS: REG ER REPORT#: [id number] SERVICE 7 REASON: sob ORDERING PHYSICIAN: KAREN COLES MD PROCEDURE: CXR1VW - CHEST 1VW Exam Type: CHEST 1VW Clinical Information: sob Comparison: None Findings: The lungs are clear of infiltrates. The heart is enlarged. Bony and soft tissue structures of the chest wall are unremarkable. IMPRESSION: Cardiomegaly. Clear lungs. DICTATED BY: RADHA MONTEZ MD DATE: 01/02/25833 ELECTRONICALLY SIGNED BY: RADHA MONTEZ MD DATE: 01/02/25842 PLAN Continue with antibiotic therapy Continue with nebulizers continue with Tamiflu NEURO: Minimize central acting medications as possible. Maintain fall precautions, adequate lighting during the day PULMONARY: Supplemental 02 as needed. Maintain aspiration precautions at all times CARDIOVASCULAR: Follow hemodynamics. Vital signs per facility protocol GI & NUTRITION: Continue with nutritional support. Continue stool softeners and laxatives as needed. KIDNEYS & ELECTROLYTES: Strict monitoring of intake, output and overall fluid balance. Avoid nephrotoxic medications to the extent possible. Medications to be dosed according to renal function. Monitor electrolytes and replace as needed ENDOCRINE: Maintain blood glucose between 100-180 at all times. Hypoglycemia protocol in place INFECTIOUS DISEASE: Trend temperature, WBC and procalcitonin level Follow cultures, deescalate antibiotics as soon as possible. Panculture if new onset fever ONCOLOGY/HEMATOLOGY/COAGULATION: Monitor for s/s of bleeding Monitor hemoglobin, coagulation studies as needed SKIN: Pressure ulcer prevention per facility protocol Specialty mattress ORTHO/REHAB: Continue PT/OT Prophylaxis: Continue GI and DVT prophylaxis Code Status: Full Resuscitation Disposition: As per attending ATTESTATION BY PHYSICIAN I reviewed the documentation, medical decision making, and treatment plan as noted by the mid-level provider above. I agree with the findings and plan of care. Senthil Rivas MD, ECTOR N NP Jan 04, 2025 11:02
[2025-01-04] MEDS ORDERED: BENZONATATE 100 MG CAPSULE PO PRN (14:00)
[2025-01-04] MEDS: Solu-medROL 40MG VIAL IVP SCH (14:10)
[2025-01-04] MEDS: BENZONATATE 100 MG CAPSULE PO SCH (14:11)
--- NOTE | 2025-01-04 15:03 | PN ---
[facility] PROGRESS NOTE Date of Service: Jan 04, 2025 Time of Service: 14:[address] Martinez SUBJECTIVE: [ ] 01/03 41-year-old female with past medical history of asthma, uncontrolled was admitted to the medical-surgical unit with diagnosis of acute asthma exacerbation, acute influenza bronchitis, Streptococcus pharyngitis and dehydration. Today at bedside evaluation patient is alert and oriented x3. she is sitting at bedside currently satting 98% on room air. The rest of the vital signs also stable, afebrile. She was coughing on and off during my assessment. CBC and CMP are stable. Continue Rocephin2 g IV daily, [id number] mg p.o. b.i.d. and Solu-Medrol 40 mg IV b.i.d.. Starting IS hourly as tolerated. CPT with DuoNebs. Pending blood and respiratory cultures. Stop IV fluids. Advanced to GI soft diet. 01/04 patient was seen by nurse practitioner and physician during rounding in room 424. Patient was evaluated by branch services manager as per chest x-ray shows clear lungs. Patient continues on Solu-Medrol daily and we will be transition to prednisolone 40 mg daily x5 days. We will continue Tamiflu as directed for influenza. Duo nebs and BiPAP as needed. As per pulmonology we will need 6 minute walk for home O2 evaluation prior discharge. Patient to follow up at the pulmonology clinic for obstructive sleep apnea evaluation and treatment. As of now blood culture negative x2 for 24 hours. Sputum g stain final negative. We are still pending respiratory culture preliminary. We will continue to monitor patient in the meantime. A.m. labs REVIEW OF SYSTEMS CONSTITUTIONAL: Asthenia, malaise, fevers, chills NEUROLOGICAL: Denies headache, amaurosis fugax, motor weakness, sensory deficit, vertigo/spinning sensation, gait abnormalities, or tremors. ENT: No hearing loss, otalgia, otorrhea, rhinitis, rhinorrhea, hoarseness, or sore throat. CARDIOVASCULAR: Denies any exertional angina, dyspnea on exertion, orthopnea, paroxysmal nocturnal dyspnea, palpitations, life-threatening arrhythmias, claudication. PULMONARY: Productive cough with shortness of breath, wheezing SLEEP: Denies morning headaches, daytime somnolence or napping. Denies difficulty falling asleep, staying asleep, waking from sleep. Denies knowledge of snoring. GASTROINTESTINAL: Denies any type of dysphagia to either liquids or solids. Denies nausea, vomiting, pyrosis, early satiety, abdominal pain, diarrhea, constipation, or changes in stool consistency or caliber. Denies coffee-ground emesis, hematemesis, hematochezia, or melanotic stools. GENITOURINARY: Denies frequency, urgency, nocturia, hematuria or incontinence (Storage/Irritative symptoms.) Low urinary stream, straining to void, urinary intermittency or hesitancy, splitting of the voiding stream, terminal dribbling. ENDOCRINOLOGIC: Denies polyuria, polydipsia, polyphagia or heat/cold intolerances. HEMATOLOGIC: Denies thrombophilia/previous clots, or coagulopathy/bleeding disorders. ONCOLOGIC: Denies personal history of malignancy. DERMATOLOGIC: Denies rashes or pruritus. PSYCHIATRIC: Denies any suicidal or homicidal ideation. Denies hallucinations. PHYSICAL EXAM GENERAL APPEARANCE: The patient is awake, alert, and oriented, in no acute cardiopulmonary distress. NEUROLOGICAL: Cranial nerves II-XII grossly intact. Motor is 5/5 in bilateral upper and lower extremities proximal to distal. No sensory deficits. HEENT: Face is symmetric. Pupils are equal and reactive. Extraocular movements are intact. NECK: Supple. No JVD. No thyromegaly. No submental, submandibular, pre- /postauricular, occipital or supraclavicular lymphadenopathy. CHEST: Normal chest expansion. No Telemetry. LUNGS: Rhonchorous breath sounds with mild wheezing noted of the bilateral lung bases CARDIOVASCULAR: Regular. S1 and S2 normal. No appreciable rubs, murmurs or gallops. ABDOMEN: Soft, nontender, and nondistended. There is no rebound, voluntary guarding, or rigidity. : Deferred. No Saenz. EXTREMITIES: Non-edematous and not cyanotic. No clubbing. Good capillary r efill. SKIN: No skin breakdown. Vital Signs (last 8hr) Date Time Temp Pulse Resp B/P (MAP) Pulse Ox O2 Delivery O2 Flow Rate FiO2 01/04/25 12:00 98.1 71 19 97/60 96 Room Air 01/04/25 11:05 65 20 01/04/25 08:30 62 20 N/A Room Air 21 01/04/25 08:00 97.9 64 19 113/64 95 Room Air 01/04/25 08:00 95 Room Air* 0 21 01/04/25 07:04 55 20 LABS: Laboratory: Test 01/04/25 11:20 01/04/25 04:54 01/03/25 07:50 01/02/25 20:24 Range/Units Whole Blood Glucose 254 #H 70-110 MG/DL White Blood Count 9.7 # 4.8-10.8 K/uL Red Blood Count 4.26 4.00-5.50 MIL/uL Hemoglobin 12.1 12.0-16.0 g/dL Hematocrit 36.7 36-48 % Mean Corpuscular Volume 86.2 79-99 fL Mean Corpuscular Hemoglobin 28.4 27.0-33.0 pg Mean Corpuscular Hemoglobin Concent 33.0 32.0-36.0 g/dL Red Cell Distribution Width 14.1 11.0-15.5 % Platelet Count 209 130-400 K/uL Mean Platelet Volume 10.4 7.5-10.5 fL Immature Granulocyte % (Auto) 0.4 0-1 % Neutrophils (%) (Auto) 84.0 H 40.0-77.0 % Lymphocytes (%) (Auto) 12.2 L 21.0-51.0 % Monocytes (%) (Auto) 3.3 3.0-13.0 % Eosinophils (%) (Auto) 0.0 0.0-8.0 % Basophils (%) (Auto) 0.1 0.0-5.0 % Neutrophils # (Auto) 8.2 H 1.8-7.7 K/uL Lymphocytes # (Auto) 1.2 1.0-4.8 K/uL Monocytes # (Auto) 0.3 0.1-1.0 K/uL Eosinophils # (Auto) 0.00 0.00-0.70 K/uL Basophils # (Auto) 0.01 0.00-0.20 K/uL Absolute Immature Granulocyte (auto 0.04 0-1 K/uL Nucleated Red Blood Cells 0.0 0.0-0.19 % Sodium Level 142 136-145 mmol/L Potassium Level 4.7 3.5-5.1 mmol/L Chloride Level 108 101-111 mmol/L Carbon Dioxide Level 29 21-32 mmol/L Blood Urea Nitrogen 17 7-18 mg/dL Creatinine 0.9 0.5-1.0 mg/dL Glomerular Filtration Rate Calc 79 >90 mL/min Random Glucose 188 H 70-105 mg/dL Total Calcium 8.0 L 8.5-10.1 mg/dL Segmented Neutrophils % 66 40-70 % Band Neutrophils % 24 H 0-2 % Lymphocytes % (Manual) 9 L 22-44 % Monocytes % (Manual) 1 L 2-9 % Differential Comment MANUAL DIFFERENTIAL White Cell Morphology Comment CONSISTENT W/DIFF Platelet Morphology Comment ADEQUATE Red Blood Cell Morphology ANISO 1+ Magnesium Level 1.90 1.80-2.40 mg/dL Total Bilirubin 0.3 0.2-1.0 mg/dL Aspartate Amino Transf (AST/SGOT) 28 10-37 U/L Alanine Aminotransferase (ALT/SGPT) 47 12-78 U/L Alkaline Phosphatase 85 50-136 U/L Total Protein 7.2 6.0-8.3 g/dL Albumin 2.6 L 3.5-5.0 g/dL Urine Color LIGHT-YELLOW YELLOW Urine Appearance CLEAR CLEAR Urine pH 5.5 5.0-8.0 Urine Specific [place] 1.004 1.001-1.031 Urine Protein NEGATIVE NEGATIVE mg/dL Urine Glucose (UA) NEGATIVE NEGATIVE mg/dL Urine Ketones NEGATIVE NEGATIVE mg/dL Urine Occult Blood NEGATIVE NEGATIVE Urine Nitrate NEGATIVE NEGATIVE Urine Bilirubin NEGATIVE NEGATIVE mg/dL Urine Urobilinogen 2.0 H 0.2-1.0 mg/dL Urine Leukocyte Esterase NEGATIVE NEGATIVE Linh/uL Test 01/02/25 17:27 01/02/25 15:54 Range/Units Erythrocyte Sedimentation Rate 40 H 0-20 MM/HR Hemoglobin A1c 6.8 H 4.0-6.0 % Estimated Average Glucose (eAG) 148 H 70-126 mg/dL Lactic Acid Level 1.0 0.8-2.5 mmol/L C-Reactive Protein, Quantitative 164.70 H 0.5-3.0 mg/L Procalcitonin 0.19 0.05-0.5 ng/mL Thyroid Stimulating Hormone (TSH) 3.78 H 0.36-3.74 uIU/mL Blood Gas Specimen Type Arterial Arterial Blood pH 7.427 7.350-7.450 Arterial Blood Partial Pressure CO2 34 32-45 mmHg Arterial Blood Partial Pressure O2 82.3 L 83.0-108.0 mmHg Arterial Blood HCO3 21.7 21.0-28.0 mmol/L Arterial Blood Oxygen Saturation 96.8 94.0-98.0 % Arterial Blood Base Excess -1.9 -2.0-3.0 mmol/L Hemoglobin (Blood Gas) 14.4 12.0-16.0 g/dL Sodium (Blood Gas) 136 136-145 MMOL/L Bedside Potassium (Blood Gas) 3.8 3.4-4.5 MMOL/L Bedside Chloride (Blood Gas) 105 98-107 MMOL/L Bedside Glucose (Blood Gas) 110 H 65-95 MG/DL Bedside Ionized Calcium (Blood Gas) 1.09 L 1.15-1.33 MMOL/L Bedside Lactic Acid (Blood Gas) 1.23 H 0.36-0.75 MMOL/L Blood Gas Temperature 37.0 35.5-37.0 CELSIUS Blood Gas Vent Mode RA ROOM AIR FiO2 21.0 % Blood Gas Specimen Comment RR Current Medications Medications (Trade) Dose Ordered Sig/Shin Route PRN Reason Start Time Stop Time Status Last Admin Dose Admin Acetaminophen (TYLenol 325MG TAB) 650 mg Q6H PRN PO MILD PAIN (1-3) 01/02/25 16:30 01/02/25 16:26 DC Albuterol (DUOneb) 1 udvial [id number] IH 01/02/25 18:00 02/01/25 17:59 01/04/25 10:53 1 UDVIAL Benzonatate (Tessalon 100mg Caps) 200 mg TID PO 01/04/25 14:30 02/03/25 13:59 01/04/25 14:11 200 MG Benzonatate (Tessalon 100mg Caps) 200 mg TID PRN PO COUGH/COLD SYMPTOMS 01/04/25 14:00 01/04/25 14:04 DC Ceftriaxone Sodium (Rocephin 2gm Inj) 2 gm Q24H IVPB 01/02/25 16:30 01/12/25 16:29 01/03/25 17:45 2 GM Enoxaparin Sodium (Lovenox) 40 mg DAILY SQ 01/03/25 09:00 02/02/25 08:59 Guaifenesin/ Dextromethorphan (RobiTUSSin DM 200/20MG 10ML) 10 ml Q6H PRN PO COUGH 01/02/25 16:30 02/01/25 16:29 Hydroxyzine HCl (ATArax 50MG INJ) 50 mg ONCE STAT IM 01/02/25 15:13 01/02/25 15:15 DC 01/02/25 15:25 50 MG Ibuprofen (moTRIN) 600 mg Q8H PRN PO fever/ MODERATE PAIN (4-6) 01/02/25 16:30 02/01/25 16:29 Insulin Human Regular (humuLIN R 100 UNIT/ML 3ML) INSULIN SLIDING SCAL... ACHS SQ 01/03/25 11:30 02/02/25 11:29 01/04/25 12:38 5 UNIT Magnesium Sulfate 50 ml @ 0 mls/hr PROTOCOL IV 01/02/25 16:30 02/01/25 16:29 Methylprednisolone Sodium Succinate (Solu-medROL 40MG) 40 mg BID IVP 01/03/25 21:00 01/04/25 09:00 DC 01/04/25 08:08 40 MG Methylprednisolone Sodium Succinate (Solu-medROL 40MG) 40 mg Q8H IVP 01/02/25 21:00 01/03/25 12:13 DC 01/03/25 05:11 40 MG Methylprednisolone Sodium Succinate (Solu-medROL 40MG) 40 mg Q8H6 IVP 01/04/25 14:00 02/01/25 20:59 01/04/25 14:10 40 MG Ondansetron HCl (zoFRAN 4MG INJ) 4 mg Q6H PRN IVP NAUSEA/VOMITING 01/02/25 16:30 02/01/25 16:29 Oseltamivir Phosphate (Tamiflu) 75 mg Q12H PO 01/02/25 16:30 01/07/25 16:29 01/04/25 06:06 75 MG Pantoprazole Sodium (PROTonix 40MG INJ) 40 mg Q24H IVP 01/02/25 16:30 02/01/25 16:29 01/03/25 17:45 40 MG Pantoprazole Sodium (PROTonix 40MG TAB) 40 mg Q24H PO 01/02/25 16:30 01/04/25 14:05 DC Pharmacy Profile Note (Pharmacy Communication) PATIENT ALLERGY TO TYLENOL Q30MIN MISC 01/02/25 16:30 01/02/25 16:29 DC Potassium Chloride 100 ml @ 100 mls/hr AD PRN IV POTASSIUM PROTOCOL 01/02/25 16:30 02/01/25 16:29 Potassium Chloride (K-Dur/Klor-Con 20meq) 20 meq AD PRN PO POTASSIUM PROTOCOL 01/02/25 16:30 02/01/25 16:29 Potassium Chloride (KCl 10% Elixir 20meq/15ml) 20 meq AD PRN PO POTASSIUM PROTOCOL 01/02/25 16:30 02/01/25 16:29 Sodium Chloride 1,000 ml @ 75 mls/hr [id number] IV 01/02/25 16:30 01/03/25 13:36 DC 01/02/25 17:50 75 MLS/HR Thiamine HCl (Vitamin B-1) 100 mg Q24H IVP 01/02/25 16:30 02/01/25 16:29 01/03/25 17:45 100 MG DIAGNOSTICS / RADIOLOGY: [ ] ASSESSMENT: Acute hypoxic respiratory failure secondary to Acute asthma exacerbation/acute influenza bronchitis, POA Acute asthma exacerbation POA Acute influenza bronchitis, POA Streptococcal pharyngitis, POA Influenza A positive POA Acute Dehydration, POA improving Undiagnosed obstructive sleep apnea, POA Morbid Obesity, POA History of uncontrolled asthma, POA PLAN: Continue admission in the medical-surgical unit Continue telemetry monitoring Advanced to GI soft diet and tolerating Titrating Solu-Medrol now at 40 mg IV b.i.d. Prednisolone starting tomorrow 01/05/2025 40 mg p.o. daily x5 days as per branch services manager Physical Science Professor signed off follow-up outpatient two weeks for obstructive sleep apnea Continue supplemental O2 to keep O2 saturations above 92%, she is currently satting 98% on room air. Continue IV Rocephin2 g daily Continue [id number] mg p.o. b.i.d. Pending blood and respiratory cultures Starting IS, hourly as tolerated Starting CPT with DuoNebs Stop IV fluids Continue CPAP therapy tonight for management of obstructive sleep apnea Pulmonology team consulted Monitoring replace electrolytes Monitor a.m. labs, cultures PRN Treatment - Add when necessary meds for nausea, vomiting, pain, constipation, insomnia. DVT/GI prophylaxis- Continue Lovenox and Protonix at current doses. Full CODE STATUS ATTESTATION BY PHYSICIAN I have seen and examined the patient. I reviewed the documentation, medical decision making, and treatment plan as noted by the mid-level provider above. I agree with the findings and plan of care. Rebel Martinez IV, MD, KATARZYNA [employer]OTE[employer] SPECIALIST Jan 04, 2025 15:03
[2025-01-05] VITALS (15 sets, daily range): BP systolic 108–125; BP diastolic 52–77; PULSE 46–78; RESP 12–20; TEMP 97.5–98.4; O2SAT 96–98
[2025-01-05 05:32] LABS: BASOPHILS # (AUTO) 0.02 K/uL (0.00-0.20); BASOPHILS % (AUTO) 0.2 % (0.0-5.0); HEMATOCRIT 36.6 % (36-48); IMMATURE GRANULOCYTE ABSOLUTE 0.11 K/uL (0-1); LYMPHOCYTES # (AUTO) 1.5 K/uL (1.0-4.8); LYMPHOCYTES % (AUTO) 17.7 % (21.0-51.0); MEAN CORPUSCULAR HEMOGLOBIN 28.3 pg (27.0-33.0); MEAN CORPUSCULAR HGB CONC 32.8 g/dL (32.0-36.0); MEAN CORPUSCULAR VOLUME 86.3 fL (79-99); MONOCYTES # (AUTO) 0.3 K/uL (0.1-1.0); MONOCYTES % (AUTO) 3.9 % (3.0-13.0); NEUTROPHILS # (AUTO) 6.7 K/uL (1.8-7.7); NEUTROPHILS % (AUTO) 76.9 % (40.0-77.0); PLATELET COUNT (AUTO) 215 K/uL (130-400); RED BLOOD CELL COUNT(AUTO) 4.24 MIL/uL (4.00-5.50); RED CELL DISTRIBUTION WIDTH 13.9 % (11.0-15.5); WHITE BLOOD COUNT (AUTO) 8.7 K/uL (4.8-10.8)
[2025-01-05 05:50] LABS: ALBUMIN 2.6 g/dL (3.5-5.0); BILIRUBIN,TOTAL 0.2 mg/dL (0.2-1.0); CREATININE 0.8 mg/dL (0.5-1.0); MAGNESIUM 1.9 mg/dL (1.80-2.40); POTASSIUM 4.8 mmol/L (3.5-5.1); TOTAL PROTEIN, SERUM 6.6 g/dL (6.0-8.3)
--- NOTE | 2025-01-05 08:00 | NUR ---
LOVENOX PATIENT REFUSING LOVENOX SQ, DVT PROPHYLAXIS, STATING SHE'S AMBULATING AND DOES NOT NEED THE MEDICATION. EDUCATED PATIENT ON REASON FOR MEDICATION AND POSSIBLE COMPLICATIONS IF NOT TAKING IT. PATIENT VOICED UNDERSTANDING, HOWEVER CONTINUED TO REFUSE. REFUSAL FORM SIGNED AND FILED IN PATIENT'S CHART. PRIMARY MD, NOTIFIED.
[2025-01-05] MEDS ORDERED: 0.9%NACL 50ML IV SCH (10:00)
[2025-01-05] MEDS: LACTULOSE 20 GM/30 ML UDCUP PO PRN (10:20)
[2025-01-05] MEDS: ZOSYN 3.375GM +NS 50ML IVPB SCH (10:20)
--- NOTE | 2025-01-05 13:27 | PN ---
[facility] PROGRESS NOTE Date Patient Seen: Jan 05, 2025 Time of Visit: 13:27 Supervising Physician: Dr. Senthil Rivas Primary Care Physician: [ ] Outpatient Specialists: [ ] Inpatient Consults: SAMANTHA PROBLEM LIST: 1. ACUTE ON CHRONIC ASTHMA EXACERBATION 2. MORBID OBESITY 3. INFLUENZA A Positive POA 4. Strep group A positive POA Plan Summary: Supplemental oxygen as needed Wean off as tolerated Duo nebs as needed BiPAP nightly and p.r.n. Begin to titrate high-dose steroids Continue IV antibiotics Montelukast 10 daily 6 minute walk test prior to discharge Outpatient follow up in Pulmonary Clinic for AMOL evaluation and treatment INTERVAL HISTORY: Patient evaluated at bedside today, Rocephin has been upgraded to Zosyn at this time due to ESBL E coli on urine culture. Currently on room air, patient continues on Tamiflu. Patient currently on Solu-Medrol 40 mg q.8, we will titrate this to Solu-Medrol 40 b.i.d. as the patient continues to improve in preparation for discharge. Patient's white count today is 8.7, hemoglobin 12.0. Patient was updated on the current treatment plan and she is in agreement. REVIEW OF SYSTEMS: 12 point ROS reviewed with patient. Pertinent positives mentioned above. Otherwise negative. PHYSICAL EXAM: GENERAL: alert, weak, awake oriented x 3 HEENT: EOMI, Sclera non icteric, moist mucosa NECK: Supple, no JVD, trachea midline LUNGS: Clear breath sounds bilaterally. No wheezes HEART: Regular rate and rhythm. Normal S1 and S2, without murmurs ABD: Abdomen soft, nontender. Bowel sounds present EXT: No clubbing cyanosis or edema NEURO: Alert and oriented to person, follows commands Vital Signs (last 8hr) Date Time Temp Pulse Resp B/P (MAP) Pulse Ox O2 Delivery O2 Flow Rate FiO2 01/05/25 12:00 97.9 54 19 117/64 92 Room Air 01/05/25 08:30 51 20 N/A Room Air 21 01/05/25 08:10 96 Room Air* 0 21 01/05/25 08:00 97.5 58 19 120/58 95 Room Air 01/05/25 07:02 46 18 LABS: Hematology Labs: Test 01/05/25 04:46 Range/Units White Blood Count 8.7 4.8-10.8 K/uL Red Blood Count 4.24 4.00-5.50 MIL/uL Hemoglobin 12.0 12.0-16.0 g/dL Hematocrit 36.6 36-48 % Mean Corpuscular Volume 86.3 79-99 fL Mean Corpuscular Hemoglobin 28.3 27.0-33.0 pg Mean Corpuscular Hemoglobin Concent 32.8 32.0-36.0 g/dL Red Cell Distribution Width 13.9 11.0-15.5 % Platelet Count 215 130-400 K/uL Mean Platelet Volume 10.0 7.5-10.5 fL Immature Granulocyte % (Auto) 1.3 H 0-1 % Neutrophils (%) (Auto) 76.9 40.0-77.0 % Lymphocytes (%) (Auto) 17.7 L 21.0-51.0 % Monocytes (%) (Auto) 3.9 3.0-13.0 % Eosinophils (%) (Auto) 0.0 0.0-8.0 % Basophils (%) (Auto) 0.2 0.0-5.0 % Neutrophils # (Auto) 6.7 1.8-7.7 K/uL Lymphocytes # (Auto) 1.5 1.0-4.8 K/uL Monocytes # (Auto) 0.3 0.1-1.0 K/uL Eosinophils # (Auto) 0.00 0.00-0.70 K/uL Basophils # (Auto) 0.02 0.00-0.20 K/uL Absolute Immature Granulocyte (auto 0.11 0-1 K/uL Nucleated Red Blood Cells 0.0 0.0-0.19 % Chemistry Labs: Test 01/05/25 11:17 01/05/25 04:46 Range/Units Whole Blood Glucose 258 #H 70-110 MG/DL Sodium Level 141 136-145 mmol/L Potassium Level 4.8 3.5-5.1 mmol/L Chloride Level 105 101-111 mmol/L Carbon Dioxide Level 31 21-32 mmol/L Blood Urea Nitrogen 20 H 7-18 mg/dL Creatinine 0.8 0.5-1.0 mg/dL Glomerular Filtration Rate Calc 91 >90 mL/min Random Glucose 166 H 70-105 mg/dL Total Calcium 8.3 L 8.5-10.1 mg/dL Magnesium Level 1.90 1.80-2.40 mg/dL Total Bilirubin 0.2 0.2-1.0 mg/dL Aspartate Amino Transf (AST/SGOT) 26 10-37 U/L Alanine Aminotransferase (ALT/SGPT) 45 12-78 U/L Alkaline Phosphatase 69 50-136 U/L Total Protein 6.6 6.0-8.3 g/dL Albumin 2.6 L 3.5-5.0 g/dL DIAGNOSTICS / RADIOLOGY RESULTS: [ ] PLAN Continue with antibiotic therapy Continue with nebulizers continue with Tamiflu NEURO: Minimize central acting medications as possible. Maintain fall precautions, adequate lighting during the day PULMONARY: Supplemental 02 as needed. Maintain aspiration precautions at all times CARDIOVASCULAR: Follow hemodynamics. Vital signs per facility protocol GI & NUTRITION: Continue with nutritional support. Continue stool softeners and laxatives as needed. KIDNEYS & ELECTROLYTES: Strict monitoring of intake, output and overall fluid balance. Avoid nephrotoxic medications to the extent possible. Medications to be dosed according to renal function. Monitor electrolytes and replace as needed ENDOCRINE: Maintain blood glucose between 100-180 at all times. Hypoglycemia protocol in place INFECTIOUS DISEASE: Trend temperature, WBC and procalcitonin level Follow cultures, deescalate antibiotics as soon as possible. Panculture if new onset fever ONCOLOGY/HEMATOLOGY/COAGULATION: Monitor for s/s of bleeding Monitor hemoglobin, coagulation studies as needed SKIN: Pressure ulcer prevention per facility protocol Specialty mattress ORTHO/REHAB: Continue PT/OT Prophylaxis: Continue GI and DVT prophylaxis Code Status: Full Resuscitation Disposition: As per attending LOTUS PIERRE Jan 05, 2025 13:27
--- NOTE | 2025-01-05 15:09 | PN ---
[facility] PROGRESS NOTE Date of Service: Jan 05, 2025 Time of Service: 15:04 SUBJECTIVE: [ ] 01/03 41-year-old female with past medical history of asthma, uncontrolled was admitted to the medical-surgical unit with diagnosis of acute asthma exacerbation, acute influenza bronchitis, Streptococcus pharyngitis and dehydration. Today at bedside evaluation patient is alert and oriented x3. she is sitting at bedside currently satting 98% on room air. The rest of the vital signs also stable, afebrile. She was coughing on and off during my assessment. CBC and CMP are stable. Continue Rocephin2 g IV daily, [id number] mg p.o. b.i.d. and Solu-Medrol 40 mg IV b.i.d.. Starting IS hourly as tolerated. CPT with DuoNebs. Pending blood and respiratory cultures. Stop IV fluids. Advanced to GI soft diet. 01/04 patient was seen by nurse practitioner and physician during rounding in room 424. 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 Patient continues on Solu-Medrol daily and we will be transition to prednisolone 40 mg daily x5 days. We will continue Tamiflu as directed for influenza. Duo nebs and BiPAP as needed. As per pulmonology we will need 6 minute walk for home O2 evaluation prior discharge. Patient to follow up at the pulmonology clinic for obstructive sleep apnea evaluation and treatment. As of now blood culture negative x2 for 24 hours. Sputum g stain final negative. We are still pending respiratory culture preliminary. We will continue to monitor patient in the meantime. A.m. labs 01/05 respiratory cultures demonstrate ESBL E coli. Patient has been transitioned to Zosyn. Patient was saturating well on room air. REVIEW OF SYSTEMS CONSTITUTIONAL: Asthenia, malaise, fevers, chills NEUROLOGICAL: Denies headache, amaurosis fugax, motor weakness, sensory deficit, vertigo/spinning sensation, gait abnormalities, or tremors. ENT: No hearing loss, otalgia, otorrhea, rhinitis, rhinorrhea, hoarseness, or sore throat. CARDIOVASCULAR: Denies any exertional angina, dyspnea on exertion, orthopnea, paroxysmal nocturnal dyspnea, palpitations, life-threatening arrhythmias, claudication. PULMONARY: Productive cough with shortness of breath, wheezing SLEEP: Denies morning headaches, daytime somnolence or napping. Denies difficulty falling asleep, staying asleep, waking from sleep. Denies knowledge of snoring. GASTROINTESTINAL: Denies any type of dysphagia to either liquids or solids. Denies nausea, vomiting, pyrosis, early satiety, abdominal pain, diarrhea, constipation, or changes in stool consistency or caliber. Denies coffee-ground emesis, hematemesis, hematochezia, or melanotic stools. GENITOURINARY: Denies frequency, urgency, nocturia, hematuria or incontinence (Storage/Irritative symptoms.) Low urinary stream, straining to void, urinary intermittency or hesitancy, splitting of the voiding stream, terminal dribbling. ENDOCRINOLOGIC: Denies polyuria, polydipsia, polyphagia or heat/cold intolerances. HEMATOLOGIC: Denies thrombophilia/previous clots, or coagulopathy/bleeding disorders. ONCOLOGIC: Denies personal history of malignancy. DERMATOLOGIC: Denies rashes or pruritus. PSYCHIATRIC: Denies any suicidal or homicidal ideation. Denies hallucinations. PHYSICAL EXAM GENERAL APPEARANCE: The patient is awake, alert, and oriented, in no acute cardiopulmonary distress. NEUROLOGICAL: Cranial nerves II-XII grossly intact. Motor is 5/5 in bilateral upper and lower extremities proximal to distal. No sensory deficits. HEENT: Face is symmetric. Pupils are equal and reactive. Extraocular movements are intact. NECK: Supple. No JVD. No thyromegaly. No submental, submandibular, pre- /postauricular, occipital or supraclavicular lymphadenopathy. CHEST: Normal chest expansion. No Telemetry. LUNGS: Rhonchorous breath sounds with mild wheezing noted of the bilateral lung bases CARDIOVASCULAR: Regular. S1 and S2 normal. No appreciable rubs, murmurs or gallops. ABDOMEN: Soft, nontender, and nondistended. There is no rebound, voluntary guarding, or rigidity. : Deferred. No Saenz. EXTREMITIES: Non-edematous and not cyanotic. No clubbing. Good capillary refill. SKIN: No skin breakdown. Vital Signs (last 8hr) Date Time Temp Pulse Resp B/P (MAP) Pulse Ox O2 Delivery O2 Flow Rate FiO2 01/05/25 12:00 97.9 54 19 117/64 92 Room Air 01/05/25 11:08 52 18 01/05/25 08:30 51 20 N/A Room Air 21 01/05/25 08:10 96 Room Air* 0 21 01/05/25 08:00 97.5 58 19 120/58 95 Room Air LABS: Laboratory: Test 01/05/25 11:17 01/05/25 04:46 Range/Units Whole Blood Glucose 258 #H 70-110 MG/DL White Blood Count 8.7 4.8-10.8 K/uL Red Blood Count 4.24 4.00-5.50 MIL/uL Hemoglobin 12.0 12.0-16.0 g/dL Hematocrit 36.6 36-48 % Mean Corpuscular Volume 86.3 79-99 fL Mean Corpuscular Hemoglobin 28.3 27.0-33.0 pg Mean Corpuscular Hemoglobin Concent 32.8 32.0-36.0 g/dL Red Cell Distribution Width 13.9 11.0-15.5 % Platelet Count 215 130-400 K/uL Mean Platelet Volume 10.0 7.5-10.5 fL Immature Granulocyte % (Auto) 1.3 H 0-1 % Neutrophils (%) (Auto) 76.9 40.0-77.0 % Lymphocytes (%) (Auto) 17.7 L 21.0-51.0 % Monocytes (%) (Auto) 3.9 3.0-13.0 % Eosinophils (%) (Auto) 0.0 0.0-8.0 % Basophils (%) (Auto) 0.2 0.0-5.0 % Neutrophils # (Auto) 6.7 1.8-7.7 K/uL Lymphocytes # (Auto) 1.5 1.0-4.8 K/uL Monocytes # (Auto) 0.3 0.1-1.0 K/uL Eosinophils # (Auto) 0.00 0.00-0.70 K/uL Basophils # (Auto) 0.02 0.00-0.20 K/uL Absolute Immature Granulocyte (auto 0.11 0-1 K/uL Nucleated Red Blood Cells 0.0 0.0-0.19 % Sodium Level 141 136-145 mmol/L Potassium Level 4.8 3.5-5.1 mmol/L Chloride Level 105 101-111 mmol/L Carbon Dioxide Level 31 21-32 mmol/L Blood Urea Nitrogen 20 H 7-18 mg/dL Creatinine 0.8 0.5-1.0 mg/dL Glomerular Filtration Rate Calc 91 >90 mL/min Random Glucose 166 H 70-105 mg/dL Total Calcium 8.3 L 8.5-10.1 mg/dL Magnesium Level 1.90 1.80-2.40 mg/dL Total Bilirubin 0.2 0.2-1.0 mg/dL Aspartate Amino Transf (AST/SGOT) 26 10-37 U/L Alanine Aminotransferase (ALT/SGPT) 45 12-78 U/L Alkaline Phosphatase 69 50-136 U/L Total Protein 6.6 6.0-8.3 g/dL Albumin 2.6 L 3.5-5.0 g/dL Current Medications Medications (Trade) Dose Ordered Sig/Shin Route PRN Reason Start Time Stop Time Status Last Admin Dose Admin Acetaminophen (TYLenol 325MG TAB) 650 mg Q6H PRN PO MILD PAIN (1-3) 01/02/25 16:30 01/02/25 16:26 DC Albuterol (DUOneb) 1 udvial [id number] IH 01/02/25 18:00 02/01/25 17:59 01/05/25 11:08 1 UDVIAL Benzonatate (Tessalon 100mg Caps) 200 mg TID PO 01/04/25 14:30 02/03/25 13:59 01/05/25 14:10 200 MG Benzonatate (Tessalon 100mg Caps) 200 mg TID PRN PO COUGH/COLD SYMPTOMS 01/04/25 14:00 01/04/25 14:04 DC Ceftriaxone Sodium (Rocephin 2gm Inj) 2 gm Q24H IVPB 01/02/25 16:30 01/05/25 09:36 DC 01/04/25 16:27 2 GM Enoxaparin Sodium (Lovenox) 40 mg DAILY SQ 01/03/25 09:00 02/02/25 08:59 Guaifenesin/ Dextromethorphan (RobiTUSSin DM 200/20MG 10ML) 10 ml Q6H PRN PO COUGH 01/02/25 16:30 02/01/25 16:29 Hydroxyzine HCl (ATArax 50MG INJ) 50 mg ONCE STAT IM 01/02/25 15:13 01/02/25 15:15 DC 01/02/25 15:25 50 MG Ibuprofen (moTRIN) 600 mg Q8H PRN PO fever/ MODERATE PAIN (4-6) 01/02/25 16:30 02/01/25 16:29 Insulin Human Regular (humuLIN R 100 UNIT/ML 3ML) INSULIN SLIDING SCAL... ACHS SQ 01/03/25 11:30 02/02/25 11:29 01/05/25 12:18 5 UNIT Lactulose (Constulose 20gm/ 30ml Udcup) 20 gm Q6H6 PRN PO CONSTIPATION 01/05/25 10:00 02/04/25 09:59 01/05/25 10:20 20 GM Magnesium Sulfate 50 ml @ 0 mls/hr PROTOCOL IV 01/02/25 16:30 02/01/25 16:29 Methylprednisolone Sodium Succinate (Solu-medROL 40MG) 40 mg BID IVP 01/03/25 21:00 01/04/25 09:00 DC 01/04/25 08:08 40 MG Methylprednisolone Sodium Succinate (Solu-medROL 40MG) 40 mg Q8H IVP 01/02/25 21:00 01/03/25 12:13 DC 01/03/25 05:11 40 MG Methylprednisolone Sodium Succinate (Solu-medROL 40MG) 40 mg Q8H6 IVP 01/04/25 14:00 02/01/25 20:59 01/05/25 14:10 40 MG Ondansetron HCl (zoFRAN 4MG INJ) 4 mg Q6H PRN IVP NAUSEA/VOMITING 01/02/25 16:30 02/01/25 16:29 Oseltamivir Phosphate (Tamiflu) 75 mg Q12H PO 01/02/25 16:30 01/07/25 16:29 01/05/25 06:05 75 MG Pantoprazole Sodium (PROTonix 40MG INJ) 40 mg Q24H IVP 01/02/25 16:30 02/01/25 16:29 01/04/25 16:27 40 MG Pantoprazole Sodium (PROTonix 40MG TAB) 40 mg Q24H PO 01/02/25 16:30 01/04/25 14:05 DC Pharmacy Profile Note (Pharmacy Communication) PATIENT ALLERGY TO TYLENOL Q30MIN MISC 01/02/25 16:30 01/02/25 16:29 DC Piperacillin Sod/ Tazobactam Sod (Zosyn 3.375gm+NS 50ml) 3.375 gm Q8H IVPB 01/05/25 10:00 01/15/25 09:59 01/05/25 10:20 3.375 GM Potassium Chloride 100 ml @ 100 mls/hr AD PRN IV POTASSIUM PROTOCOL 01/02/25 16:30 02/01/25 16:29 Potassium Chloride (K-Dur/Klor-Con 20meq) 20 meq AD PRN PO POTASSIUM PROTOCOL 01/02/25 16:30 02/01/25 16:29 Potassium Chloride (KCl 10% Elixir 20meq/15ml) 20 meq AD PRN PO POTASSIUM PROTOCOL 01/02/25 16:30 02/01/25 16:29 Sodium Chloride 1,000 ml @ 75 mls/hr [id number] IV 01/02/25 16:30 01/03/25 13:36 DC 01/02/25 17:50 75 MLS/HR Sodium Chloride (NS 50ml) 50 ml AD IV 01/05/25 10:00 02/04/25 09:59 Thiamine HCl (Vitamin B-1) 100 mg Q24H IVP 01/02/25 16:30 02/01/25 16:29 01/04/25 16:27 100 MG DIAGNOSTICS / RADIOLOGY: [ ] ASSESSMENT: Acute hypoxic respiratory failure secondary to Acute asthma exacerbation/acute influenza bronchitis, POA Acute asthma exacerbation POA Acute influenza bronchitis, POA Streptococcal pharyngitis, POA Influenza A positive POA Superimposed bacterial pneumonia, ESBL E coli, POA Acute Dehydration, POA improving Undiagnosed obstructive sleep apnea, POA Morbid Obesity, POA History of uncontrolled asthma, POA PLAN: Continue admission in the medical-surgical unit Continue telemetry monitoring Advanced to GI soft diet and tolerating Follow up with Pulmonary Medicine -follow-up outpatient two weeks for obstructive sleep apnea -Prednisolone 40 mg p.o. daily x5 days -home O2 evaluation prior to discharge -Continue IV Zosyn Continue [id number] mg p.o. b.i.d. to complete five days Follow up blood cultures Continue IS, hourly as tolerated Continue CPT with DuoNebs Continue CPAP therapy tonight for management of obstructive sleep apnea Pulmonology team consulted Monitoring replace electrolytes Monitor a.m. labs, cultures PRN Treatment - Add when necessary meds for nausea, vomiting, pain, constipation, insomnia. DVT/GI prophylaxis- Continue Lovenox and Protonix at current doses. Full CODE STATUS FRAN GONZALES IV, MD Jan 05, 2025 15:09
[2025-01-05] MEDS: Solu-medROL 40MG VIAL IVP SCH (21:06)
[2025-01-06] VITALS (12 sets, daily range): BP systolic 113–120; BP diastolic 60–78; PULSE 46–68; RESP 18–20; TEMP 97.3–98.3; O2SAT 94–100
[2025-01-06 05:31] LABS: HEMATOCRIT 38.3 % (36-48); MEAN CORPUSCULAR HEMOGLOBIN 28.2 pg (27.0-33.0); MEAN CORPUSCULAR HGB CONC 31.9 g/dL (32.0-36.0); MEAN CORPUSCULAR VOLUME 88.5 fL (79-99); RED BLOOD CELL COUNT(AUTO) 4.33 MIL/uL (4.00-5.50); RED CELL DISTRIBUTION WIDTH 13.6 % (11.0-15.5); WHITE BLOOD COUNT (AUTO) 8.1 K/uL (4.8-10.8)
[2025-01-06 05:33] LABS: CREATININE 0.8 mg/dL (0.5-1.0); POTASSIUM 4.1 mmol/L (3.5-5.1)
--- NOTE | 2025-01-06 13:17 | PN ---
[facility] PROGRESS NOTE Date Patient Seen: Jan 06, 2025 Time of Visit: 13:17 Supervising Physician: Dr. Kenyon Last Primary Care Physician: [ ] Outpatient Specialists: [ ] Inpatient Consults: BIS PROBLEM LIST: 1. ACUTE ON CHRONIC ASTHMA EXACERBATION 2. MORBID OBESITY 3. INFLUENZA A Positive POA 4. Strep group A positive POA Plan Summary: Supplemental oxygen as needed Wean off as tolerated Duo nebs as needed BiPAP nightly and p.r.n. Begin to titrate high-dose steroids Continue IV antibiotics Montelukast 10 daily 6 minute walk test prior to discharge Outpatient follow up in Pulmonary Clinic for AMOL evaluation and treatment INTERVAL HISTORY: Patient evaluated at bedside today, she continues on Zosyn and Tamiflu at this time, antibiotics escalated to Zosyn for ESBL E coli in the urinary culture. Patient's Solu-Medrol was down from 40 mg q.8 hours to 40 mg b.i.d. as of yesterday. We will continue to wean the patient's steroids during the remainder of her admission. White count today is 8.7, hemoglobin 12.0. Patient continues on room air. REVIEW OF SYSTEMS: 12 point ROS reviewed with patient. Pertinent positives mentioned above. Otherwise negative. PHYSICAL EXAM: GENERAL: alert, weak, awake oriented x 3 HEENT: EOMI, Sclera non icteric, moist mucosa NECK: Supple, no JVD, trachea midline LUNGS: Clear breath sounds bilaterally. No wheezes HEART: Regular rate and rhythm. Normal S1 and S2, without murmurs ABD: Abdomen soft, nontender. Bowel sounds present EXT: No clubbing cyanosis or edema NEURO: Alert and oriented to person, follows commands Vital Signs (last 8hr) Date Time Temp Pulse Resp B/P (MAP) Pulse Ox O2 Delivery O2 Flow Rate FiO2 01/06/25 12:00 97.5 60 18 118/78 98 Room Air 01/06/25 11:09 47 18 01/06/25 07:15 98.2 53 19 120/70 100 Room Air 21 01/06/25 06:47 50 20 N/A Room Air 21 01/06/25 06:45 50 18 LABS: Hematology Labs: Test 01/06/25 05:12 01/05/25 04:46 Range/Units White Blood Count 8.1 4.8-10.8 K/uL Red Blood Count 4.33 4.00-5.50 MIL/uL Hemoglobin 12.2 12.0-16.0 g/dL Hematocrit 38.3 36-48 % Mean Corpuscular Volume 88.5 79-99 fL Mean Corpuscular Hemoglobin 28.2 27.0-33.0 pg Mean Corpuscular Hemoglobin Concent 31.9 L 32.0-36.0 g/dL Red Cell Distribution Width 13.6 11.0-15.5 % Platelet Count 221 130-400 K/uL Mean Platelet Volume 10.1 7.5-10.5 fL Nucleated Red Blood Cells 0.0 0.0-0.19 % Immature Granulocyte % (Auto) 1.3 H 0-1 % Neutrophils (%) (Auto) 76.9 40.0-77.0 % Lymphocytes (%) (Auto) 17.7 L 21.0-51.0 % Monocytes (%) (Auto) 3.9 3.0-13.0 % Eosinophils (%) (Auto) 0.0 0.0-8.0 % Basophils (%) (Auto) 0.2 0.0-5.0 % Neutrophils # (Auto) 6.7 1.8-7.7 K/uL Lymphocytes # (Auto) 1.5 1.0-4.8 K/uL Monocytes # (Auto) 0.3 0.1-1.0 K/uL Eosinophils # (Auto) 0.00 0.00-0.70 K/uL Basophils # (Auto) 0.02 0.00-0.20 K/uL Absolute Immature Granulocyte (auto 0.11 0-1 K/uL Chemistry Labs: Test 01/06/25 11:47 01/06/25 05:12 01/05/25 04:46 Range/Units Whole Blood Glucose 222 H 70-110 MG/DL Sodium Level 142 136-145 mmol/L Potassium Level 4.1 3.5-5.1 mmol/L Chloride Level 107 101-111 mmol/L Carbon Dioxide Level 26 21-32 mmol/L Blood Urea Nitrogen 21 H 7-18 mg/dL Creatinine 0.8 0.5-1.0 mg/dL Glomerular Filtration Rate Calc 91 >90 mL/min Random Glucose 200 H 70-105 mg/dL Total Calcium 8.1 L 8.5-10.1 mg/dL Magnesium Level 1.90 1.80-2.40 mg/dL Total Bilirubin 0.2 0.2-1.0 mg/dL Aspartate Amino Transf (AST/SGOT) 26 10-37 U/L Alanine Aminotransferase (ALT/SGPT) 45 12-78 U/L Alkaline Phosphatase 69 50-136 U/L Total Protein 6.6 6.0-8.3 g/dL Albumin 2.6 L 3.5-5.0 g/dL DIAGNOSTICS / RADIOLOGY RESULTS: [ ] PLAN Continue with antibiotic therapy Continue with nebulizers continue with Tamiflu NEURO: Minimize central acting medications as possible. Maintain fall precautions, adequate lighting during the day PULMONARY: Supplemental 02 as needed. Maintain aspiration precautions at all times CARDIOVASCULAR: Follow hemodynamics. Vital signs per facility protocol GI & NUTRITION: Continue with nutritional support. Continue stool softeners and laxatives as needed. KIDNEYS & ELECTROLYTES: Strict monitoring of intake, output and overall fluid balance. Avoid nephrotoxic medications to the extent possible. Medications to be dosed according to renal function. Monitor electrolytes and replace as needed ENDOCRINE: Maintain blood glucose between 100-180 at all times. Hypoglycemia protocol in place INFECTIOUS DISEASE: Trend temperature, WBC and procalcitonin level Follow cultures, deescalate antibiotics as soon as possible. Panculture if new onset fever ONCOLOGY/HEMATOLOGY/COAGULATION: Monitor for s/s of bleeding Monitor hemoglobin, coagulation studies as needed SKIN: Pressure ulcer prevention per facility protocol Specialty mattress ORTHO/REHAB: Continue PT/OT Prophylaxis: Continue GI and DVT prophylaxis Code Status: Full Resuscitation Disposition: As per attending LOTUS PIERRE Jan 06, 2025 13:17
--- NOTE | 2025-01-06 14:21 | PN ---
[facility] PROGRESS NOTE Date of Service: Jan 06, 2025 Time of Service: 14:[address] Martinez SUBJECTIVE: [ ] 01/03 41-year-old female with past medical history of asthma, uncontrolled was admitted to the medical-surgical unit with diagnosis of acute asthma exacerbation, acute influenza bronchitis, Streptococcus pharyngitis and dehydration. Today at bedside evaluation patient is alert and oriented x3. she is sitting at bedside currently satting 98% on room air. The rest of the vital signs also stable, afebrile. She was coughing on and off during my assessment. CBC and CMP are stable. Continue Rocephin2 g IV daily, [id number] mg p.o. b.i.d. and Solu-Medrol 40 mg IV b.i.d.. Starting IS hourly as tolerated. CPT with DuoNebs. Pending blood and respiratory cultures. Stop IV fluids. Advanced to GI soft diet. 01/04 patient was seen by nurse practitioner and physician during rounding in room 424. Patient was evaluated by surveying crew rodman as per chest x-ray shows clear lungs. Patient continues on Solu-Medrol daily and we will be transition to prednisolone 40 mg daily x5 days. We will continue Tamiflu as directed for influenza. Duo nebs and BiPAP as needed. As per pulmonology we will need 6 minute walk for home O2 evaluation prior discharge. Patient to follow up at the pulmonology clinic for obstructive sleep apnea evaluation and treatment. As of now blood culture negative x2 for 24 hours. Sputum g stain final negative. We are still pending respiratory culture preliminary. We will continue to monitor patient in the meantime. A.m. labs 01/05 respiratory cultures demonstrate ESBL E coli. Patient has been transitioned to Zosyn. Patient was saturating well on room air. 01/06 patient was seen by COLD REDUCTION ROLLER and physician during rounding. Respiratory culture was positive for ESBL E coli. Patient was placed on Zosyn. Id was consulted for further recommendations of IV antibiotics versus p.o. antibiotics if patient discharged home. Patient is pending 6 minute walk prior discharge as recommended by surveying crew rodman. We will discontinue methylprednisolone IV and start patient on prednisolone 40 mg p.o. daily x5 days as recommended by surveying crew rodman starting tomorrow 01/07/25. We will continue to monitor patient in the meantime. A.m. labs. REVIEW OF SYSTEMS CONSTITUTIONAL: Asthenia, malaise, fevers, chills NEUROLOGICAL: Denies headache, amaurosis fugax, motor weakness, sensory deficit, vertigo/spinning sensation, gait abnormalities, or tremors. ENT: No hearing loss, otalgia, otorrhea, rhinitis, rhinorrhea, hoarseness, or sore throat. CARDIOVASCULAR: Denies any exertional angina, dyspnea on exertion, orthopnea, paroxysmal nocturnal dyspnea, palpitations, life-threatening arrhythmias, claudication. PULMONARY: Productive cough with shortness of breath, wheezing SLEEP: Denies morning headaches, daytime somnolence or napping. Denies difficulty falling asleep, staying asleep, waking from sleep. Denies knowledge of snoring. GASTROINTESTINAL: Denies any type of dysphagia to either liquids or solids. Denies nausea, vomiting, pyrosis, early satiety, abdominal pain, diarrhea, constipation, or changes in stool consistency or caliber. Denies coffee-ground emesis, hematemesis, hematochezia, or melanotic stools. GENITOURINARY: Denies frequency, urgency, nocturia, hematuria or incontinence (Storage/Irritative symptoms.) Low urinary stream, straining to void, urinary i ntermittency or hesitancy, splitting of the voiding stream, terminal dribbling. ENDOCRINOLOGIC: Denies polyuria, polydipsia, polyphagia or heat/cold intolerances. HEMATOLOGIC: Denies thrombophilia/previous clots, or coagulopathy/bleeding disorders. ONCOLOGIC: Denies personal history of malignancy. DERMATOLOGIC: Denies rashes or pruritus. PSYCHIATRIC: Denies any suicidal or homicidal ideation. Denies hallucinations. PHYSICAL EXAM GENERAL APPEARANCE: The patient is awake, alert, and oriented, in no acute cardiopulmonary distress. NEUROLOGICAL: Cranial nerves II-XII grossly intact. Motor is 5/5 in bilateral upper and lower extremities proximal to distal. No sensory deficits. HEENT: Face is symmetric. Pupils are equal and reactive. Extraocular movements are intact. NECK: Supple. No JVD. No thyromegaly. No submental, submandibular, pre- /postauricular, occipital or supraclavicular lymphadenopathy. CHEST: Normal chest expansion. No Telemetry. LUNGS: Rhonchorous breath sounds with mild wheezing noted of the bilateral lung bases CARDIOVASCULAR: Regular. S1 and S2 normal. No appreciable rubs, murmurs or gallops. ABDOMEN: Soft, nontender, and nondistended. There is no rebound, voluntary guarding, or rigidity. : Deferred. No Saenz. EXTREMITIES: Non-edematous and not cyanotic. No clubbing. Good capillary refill. SKIN: No skin breakdown. Vital Signs (last 8hr) Date Time Temp Pulse Resp B/P (MAP) Pulse Ox O2 Delivery O2 Flow Rate FiO2 01/06/25 12:00 97.5 60 18 118/78 98 Room Air 01/06/25 11:09 47 18 01/06/25 07:15 98.2 53 19 120/70 100 Room Air 21 01/06/25 06:47 50 20 N/A Room Air 21 01/06/25 06:45 50 18 LABS: Laboratory: Test 01/06/25 11:47 01/06/25 05:12 01/05/25 04:46 Range/Units Whole Blood Glucose 222 H 70-110 MG/DL White Blood Count 8.1 4.8-10.8 K/uL Red Blood Count 4.33 4.00-5.50 MIL/uL Hemoglobin 12.2 12.0-16.0 g/dL Hematocrit 38.3 36-48 % Mean Corpuscular Volume 88.5 79-99 fL Mean Corpuscular Hemoglobin 28.2 27.0-33.0 pg Mean Corpuscular Hemoglobin Concent 31.9 L 32.0-36.0 g/dL Red Cell Distribution Width 13.6 11.0-15.5 % Platelet Count 221 130-400 K/uL Mean Platelet Volume 10.1 7.5-10.5 fL Nucleated Red Blood Cells 0.0 0.0-0.19 % Sodium Level 142 136-145 mmol/L Potassium Level 4.1 3.5-5.1 mmol/L Chloride Level 107 101-111 mmol/L Carbon Dioxide Level 26 21-32 mmol/L Blood Urea Nitrogen 21 H 7-18 mg/dL Creatinine 0.8 0.5-1.0 mg/dL Glomerular Filtration Rate Calc 91 >90 mL/min Random Glucose 200 H 70-105 mg/dL Total Calcium 8.1 L 8.5-10.1 mg/dL Immature Granulocyte % (Auto) 1.3 H 0-1 % Neutrophils (%) (Auto) 76.9 40.0-77.0 % Lymphocytes (%) (Auto) 17.7 L 21.0-51.0 % Monocytes (%) (Auto) 3.9 3.0-13.0 % Eosinophils (%) (Auto) 0.0 0.0-8.0 % Basophils (%) (Auto) 0.2 0.0-5.0 % Neutrophils # (Auto) 6.7 1.8-7.7 K/uL Lymphocytes # (Auto) 1.5 1.0-4.8 K/uL Monocytes # (Auto) 0.3 0.1-1.0 K/uL Eosinophils # (Auto) 0.00 0.00-0.70 K/uL Basophils # (Auto) 0.02 0.00-0.20 K/uL Absolute Immature Granulocyte (auto 0.11 0-1 K/uL Magnesium Level 1.90 1.80-2.40 mg/dL Total Bilirubin 0.2 0.2-1.0 mg/dL Aspartate Amino Transf (AST/SGOT) 26 10-37 U/L Alanine Aminotransferase (ALT/SGPT) 45 12-78 U/L Alkaline Phosphatase 69 50-136 U/L Total Protein 6.6 6.0-8.3 g/dL Albumin 2.6 L 3.5-5.0 g/dL Current Medications Medications (Trade) Dose Ordered Sig/Shin Route PRN Reason Start Time Stop Time Status Last Admin Dose Admin Acetaminophen (TYLenol 325MG TAB) 650 mg Q6H PRN PO MILD PAIN (1-3) 01/02/25 16:30 01/02/25 16:26 DC Albuterol (DUOneb) 1 udvial [id number] IH 01/02/25 18:00 02/01/25 17:59 01/06/25 11:09 1 UDVIAL Benzonatate (Tessalon 100mg Caps) 200 mg TID PO 01/04/25 14:30 02/03/25 13:59 01/06/25 10:36 200 MG Benzonatate (Tessalon 100mg Caps) 200 mg TID PRN PO COUGH/COLD SYMPTOMS 01/04/25 14:00 01/04/25 14:04 DC Ceftriaxone Sodium (Rocephin 2gm Inj) 2 gm Q24H IVPB 01/02/25 16:30 2/18/25 09:36 DC 01/04/25 16:27 2 GM Enoxaparin Sodium (Lovenox) 40 mg DAILY SQ 01/03/25 09:00 02/02/25 08:59 Guaifenesin/ Dextromethorphan (RobiTUSSin DM 200/20MG 10ML) 10 ml Q6H PRN PO COUGH 01/02/25 16:30 02/01/25 16:29 Hydroxyzine HCl (ATArax 50MG INJ) 50 mg ONCE STAT IM 01/02/25 15:13 01/02/25 15:15 DC 01/02/25 15:25 50 MG Ibuprofen (moTRIN) 600 mg Q8H PRN PO fever/ MODERATE PAIN (4-6) 01/02/25 16:30 02/01/25 16:29 Insulin Human Regular (humuLIN R 100 UNIT/ML 3ML) INSULIN SLIDING SCAL... ACHS SQ 01/03/25 11:30 02/02/25 11:29 01/06/25 12:25 3 UNIT Lactulose (Constulose 20gm/ 30ml Udcup) 20 gm Q6H6 PRN PO CONSTIPATION 01/05/25 10:00 02/04/25 09:59 01/05/25 10:20 20 GM Magnesium Sulfate 50 ml @ 0 mls/hr PROTOCOL IV 01/02/25 16:30 02/01/25 16:29 Methylprednisolone Sodium Succinate (Solu-medROL 40MG) 40 mg BID IVP 01/03/25 21:00 01/04/25 09:00 DC 01/04/25 08:08 40 MG Methylprednisolone Sodium Succinate (Solu-medROL 40MG) 40 mg BID IVP 01/05/25 21:00 02/04/25 20:59 01/06/25 10:35 40 MG Methylprednisolone Sodium Succinate (Solu-medROL 40MG) 40 mg Q8H IVP 01/02/25 21:00 01/03/25 12:13 DC 01/03/25 05:11 40 MG Methylprednisolone Sodium Succinate (Solu-medROL 40MG) 40 mg Q8H6 IVP 01/04/25 14:00 01/05/25 16:26 DC 01/05/25 14:10 40 MG Ondansetron HCl (zoFRAN 4MG INJ) 4 mg Q6H PRN IVP NAUSEA/VOMITING 01/02/25 16:30 02/01/25 16:29 Oseltamivir Phosphate (Tamiflu) 75 mg Q12H PO 01/02/25 16:30 01/07/25 16:29 01/06/25 03:11 75 MG Pantoprazole Sodium (PROTonix 40MG INJ) 40 mg Q24H IVP 01/02/25 16:30 02/01/25 16:29 01/05/25 17:37 40 MG Pantoprazole Sodium (PROTonix 40MG TAB) 40 mg Q24H PO 01/02/25 16:30 01/04/25 14:05 DC Pharmacy Profile Note (Pharmacy Communication) PATIENT ALLERGY TO TYLENOL Q30MIN MISC 01/02/25 16:30 01/02/25 16:29 DC Piperacillin Sod/ Tazobactam Sod (Zosyn 3.375gm+NS 50ml) 3.375 gm Q8H IVPB 01/05/25 10:00 01/15/25 09:59 01/06/25 10:35 3.375 GM Potassium Chloride 100 ml @ 100 mls/hr AD PRN IV POTASSIUM PROTOCOL 01/02/25 16:30 02/01/25 16:29 Potassium Chloride (K-Dur/Klor-Con 20meq) 20 meq AD PRN PO POTASSIUM PROTOCOL 01/02/25 16:30 02/01/25 16:29 Potassium Chloride (KCl 10% Elixir 20meq/15ml) 20 meq AD PRN PO POTASSIUM PROTOCOL 01/02/25 16:30 02/01/25 16:29 Sodium Chloride 1,000 ml @ 75 mls/hr [id number] IV 01/02/25 16:30 01/03/25 13:36 DC 01/02/25 17:50 75 MLS/HR Sodium Chloride (NS 50ml) 50 ml AD IV 01/05/25 10:00 02/04/25 09:59 Thiamine HCl (Vitamin B-1) 100 mg Q24H IVP 01/02/25 16:30 02/01/25 16:29 01/05/25 17:37 100 MG DIAGNOSTICS / RADIOLOGY: [ ] ASSESSMENT: Acute hypoxic respiratory failure secondary to Acute asthma exacerbation/acute influenza bronchitis, POA Acute asthma exacerbation POA Acute influenza bronchitis, POA Streptococcal pharyngitis, POA Influenza A positive POA Superimposed bacterial pneumonia, ESBL E coli, POA Sputum culture growing ESBL E coli Acute Dehydration, POA improving Undiagnosed obstructive sleep apnea, POA Morbid Obesity, POA History of uncontrolled asthma, POA PLAN: Continue admission in the medical-surgical unit Continue telemetry monitoring Advanced to GI soft diet and tolerating Follow up with Pulmonary Medicine -follow-up outpatient two weeks for obstructive sleep apnea -Prednisolone 40 mg p.o. daily x5 days -home O2 evaluation prior to discharge -Continue IV Zosyn Continue [id number] mg p.o. b.i.d. to complete five days Follow up blood cultures Continue IS, hourly as tolerated Continue CPT with DuoNebs Continue CPAP therapy tonight for management of obstructive sleep apnea Pulmonology team consulted Monitoring replace electrolytes Monitor a.m. labs, cultures PRN Treatment - Add when necessary meds for nausea, vomiting, pain, constipation, insomnia. DVT/GI prophylaxis- Continue Lovenox and Protonix at current doses. Full CODE STATUS ATTESTATION BY PHYSICIAN I have seen and examined the patient. I reviewed the documentation, medical decision making, and treatment plan as noted by the mid-level provider above. I agree with the findings and plan of care. Rebel Martinez IV, MD, [employer] Jan 06, 2025 14:20
--- NOTE | 2025-01-06 14:49 | CONS ---
INFECTIOUS DISEASE CONSULTATION NOTE Date of Service: Jan 06, 2025 Reason for Consultation: Multidrug resistant organism, E coli in sputum Requesting Physician: Dr. Rebel Martinez HISTORY OF PRESENT ILLNESS: The is a 49-year-old female patient with past medical history of asthma and anxiety who presented to the ER for chief complaints of cough, wheezing and shortness of breaths. Patient also reported having fever, a sore throat and headache. Patient reported the cough is productive and that sputum was ini tially thick and yellow. On admission patient had a fever of 100.9, and the CRP was 164.70. No nausea or vomiting. A chest x-ray on admission showed clear lungs. On examination however patient is having wheezing and crackles on auscultation and having productive cough. Patient desaturates during coughing episodes but otherwise the oxygen saturation remains between 95-97% on room air. A sputum culture collected on admission came back positive for ESBL E coli and the reason for this consult. Patient has been started on Zosyn IV every [address] a PICC line and we will have case management evaluate patient for referral to [facility] for outpatient IV antibiotics for 10 days. REVIEW OF SYSTEMS CONSTITUTIONAL: Positive for fever HEAD/FACE: No signs of trauma. Headache. EENT: Denies eye pain, blurred vision, double vision, or light sensitivity. Sore throat. RESPIRATORY: Positive for shortness of breath, Wheezing and Productive cough. CARDIOVASCULAR: Denies chest pain, palpitation, syncope GASTROINTESTINAL/ABDOMINAL: Denies abdominal pain, constipation, diarrhea, nausea or vomiting GENITOURINARY: Denies dysuria or hematuria. MUSCULOSKELETAL: Denies joint pain, tenderness, or trauma. INTEGUMENTARY: Denies rash or itchiness NEUROLOGICAL/PSYCH: Denies anxiety, depression, heat or cold intolerance. PAST MEDICAL HISTORY: Asthma. Anxiety. Morbid obesity. PAST SURGICAL HISTORY: . PAST SOCIAL HISTORY: Denied the use of tobacco, alcohol or any other illicit drug. FAMILY HISTORY: Mother had diabetes mellitus and coronary artery disease Coded Allergies: tomato (Verified Allergy, Severe, 01/02/25) onion (Verified Allergy, Intermediate, rash, 01/02/25) acetaminophen (Unverified Allergy, Unknown, 10/21/21) montelukast (Unverified Allergy, Unknown, 08/10/22) PHYSICAL EXAM EYES: Anicteric. Pupils equal and reactive. HENT: No oral thrush seen, moist Oral mucosa. NECK: Supple, no JVD or thyromegaly. LUNGS: Productive cough. Wheezing, Crackles on auscultation. CARDIOVASCULAR: S1, S2 regular. No murmur heard. ABDOMEN: Non tender, bowel sounds present, no organomegaly. Obese but soft CENTRAL NERVOUS SYSTEM: Awake, alert, oriented x 3. SKIN: No rashes, no swelling. LYMPHATICS: No peripheral lymphadenopathy. MUSCULOSKELETAL: No joint swelling, erythema or tenderness. EXTREMITIES: No cyanosis or clubbing. BACK: No deformity, no pressure ulcer. GENITOURINARY: No dysuria or hematuria. Vital Sign (Last 24 Hours) 01/05/25 01/06/25 01/06/25 19:30 07:15 12:00 Temp 97.5 Pulse 60 Resp 18 B/P (MAP) 118/78 Pulse Ox 98 O2 Delivery Room Air O2 Flow Rate 0 FiO2 21 Intake & Output (last 24hrs) 01/05/25 01/05/25 01/06/25 15:00 23:00 07:00 Intake Total 600 ml Balance 600 ml LABS: Laboratory: Test 01/06/25 11:47 01/06/25 05:12 01/05/25 04:46 Range/Units Whole Blood Glucose 222 H 70-110 MG/DL White Blood Count 8.1 4.8-10.8 K/uL Red Blood Count 4.33 4.00-5.50 MIL/uL Hemoglobin 12.2 12.0-16.0 g/dL Hematocrit 38.3 36-48 % Mean Corpuscular Volume 88.5 79-99 fL Mean Corpuscular Hemoglobin 28.2 27.0-33.0 pg Mean Corpuscular Hemoglobin Concent 31.9 L 32.0-36.0 g/dL Red Cell Distribution Width 13.6 11.0-15.5 % Platelet Count 221 130-400 K/uL Mean Platelet Volume 10.1 7.5-10.5 fL Nucleated Red Blood Cells 0.0 0.0-0.19 % Sodium Level 142 136-145 mmol/L Potassium Level 4.1 3.5-5.1 mmol/L Chloride Level 107 101-111 mmol/L Carbon Dioxide Level 26 21-32 mmol/L Blood Urea Nitrogen 21 H 7-18 mg/dL Creatinine 0.8 0.5-1.0 mg/dL Glomerular Filtration Rate Calc 91 >90 mL/min Random Glucose 200 H 70-105 mg/dL Total Calcium 8.1 L 8.5-10.1 mg/dL Immature Granulocyte % (Auto) 1.3 H 0-1 % Neutrophils (%) (Auto) 76.9 40.0-77.0 % Lymphocytes (%) (Auto) 17.7 L 21.0-51.0 % Monocytes (%) (Auto) 3.9 3.0-13.0 % Eosinophils (%) (Auto) 0.0 0.0-8.0 % Basophils (%) (Auto) 0.2 0.0-5.0 % Neutrophils # (Auto) 6.7 1.8-7.7 K/uL Lymphocytes # (Auto) 1.5 1.0-4.8 K/uL Monocytes # (Auto) 0.3 0.1-1.0 K/uL Eosinophils # (Auto) 0.00 0.00-0.70 K/uL Basophils # (Auto) 0.02 0.00-0.20 K/uL Absolute Immature Granulocyte (auto 0.11 0-1 K/uL Magnesium Level 1.90 1.80-2.40 mg/dL Total Bilirubin 0.2 0.2-1.0 mg/dL Aspartate Amino Transf (AST/SGOT) 26 10-37 U/L Alanine Aminotransferase (ALT/SGPT) 45 12-78 U/L Alkaline Phosphatase 69 50-136 U/L Total Protein 6.6 6.0-8.3 g/dL Albumin 2.6 L 3.5-5.0 g/dL ASSESSMENT: Gram-negative Pneumonia. Infection with multidrug resistant organism, E coli. Acute on chronic asthma exacerbation. Influenza viral infection type A Streptococcus viral infection group A. Morbid obesity. PLAN: Continue on Zosyn. Continue Tamiflu. Patient will need outpatient IV antibiotics for [address] midline. Case management evaluation for referral to [facility] for outpatient IV antibiotics. Continue bronchodilators. Continue oxygen support. Continue steroids. Thank you for allowing ID to participate in the care of this patient. This case was reviewed and discussed with my supervising physician and the above assessment and plan was formulated and agreed upon. ATTESTATION BY PHYSICIAN I have seen and examined the patient. I reviewed the documentation, medical decision making, and treatment plan as noted by the mid-level provider above. I agree with the findings and plan of care. NEETA KIRK MD, [facility] Jan 06, 2025 14:49
[2025-01-06 15:58] LABS: INR <= 0.93 (0.85-1.15); PROTHROMBIN TIME 10.1 SEC (9.6-11.6)
[2025-01-07] VITALS (11 sets, daily range): BP systolic 112–135; BP diastolic 63–75; PULSE 44–65; RESP 16–22; TEMP 97.4–98; O2SAT 97–100
[2025-01-07 03:39] LABS: BASOPHILS # (AUTO) 0.03 K/uL (0.00-0.20); BASOPHILS % (AUTO) 0.3 % (0.0-5.0); HEMATOCRIT 38.2 % (36-48); IMMATURE GRANULOCYTE ABSOLUTE 0.51 K/uL (0-1); LYMPHOCYTES # (AUTO) 2.7 K/uL (1.0-4.8); LYMPHOCYTES % (AUTO) 28.3 % (21.0-51.0); MEAN CORPUSCULAR HEMOGLOBIN 28.5 pg (27.0-33.0); MEAN CORPUSCULAR HGB CONC 31.9 g/dL (32.0-36.0); MEAN CORPUSCULAR VOLUME 89.3 fL (79-99); MONOCYTES # (AUTO) 0.6 K/uL (0.1-1.0); MONOCYTES % (AUTO) 6.6 % (3.0-13.0); NEUTROPHILS # (AUTO) 5.6 K/uL (1.8-7.7); NEUTROPHILS % (AUTO) 59.4 % (40.0-77.0); NUCLEATED RED BLOOD CELLS 0.4 % (0.0-0.19); PLATELET COUNT (AUTO) 225 K/uL (130-400); RED BLOOD CELL COUNT(AUTO) 4.28 MIL/uL (4.00-5.50); RED CELL DISTRIBUTION WIDTH 13.4 % (11.0-15.5); WHITE BLOOD COUNT (AUTO) 9.4 K/uL (4.8-10.8)
[2025-01-07 03:58] LABS: ALBUMIN 2.7 g/dL (3.5-5.0); BILIRUBIN,TOTAL 0.3 mg/dL (0.2-1.0); CREATININE 0.9 mg/dL (0.5-1.0); MAGNESIUM 2.3 mg/dL (1.80-2.40); POTASSIUM 4.1 mmol/L (3.5-5.1); TOTAL PROTEIN, SERUM 6.3 g/dL (6.0-8.3)
[2025-01-07] MEDS: predniSONE 20 MG TABLET PO SCH (10:01)
--- NOTE | 2025-01-07 11:44 | NUR ---
DC PLAN VISITED WITH PATIENT. TRIGGER RECEIVED FOR [facility]. STILL PENDING . PER PATIENT SAID CAN MAKE IT TO DR. MONTAÑO OFFICE EVERY DAY FOR 10 DAYS. LYNNE SIGNED. PACKET MADE AND SENT. MIGHT NEED TO GET TENTATIVE ACCEPTANCE AND FOLLOW UP WITH PCP FOR PRE AUTHORIZATION. PATIENT IS BCBS EXC. MADE PATIENT AWARE OF PROBABLE NEED TO GO SEE PCP VERBALIZED UNDERSTANDING. Addendum: 01/07/25 at 1149 by MILTON LEE RN CM Amended: Links added.
[2025-01-07] MEDS ORDERED: IPRA3AMP24 IH (13:17)
[2025-01-07] MEDS ORDERED: PRED20B PO (13:17)
[2025-01-07] MEDS ORDERED: BENZ-226 PO (13:17)
[2025-01-07] MEDS ORDERED: THIA100T91 PO (13:20)
--- NOTE | 2025-01-07 13:30 | DS ---
Discharge Summary Hospital Course Summary: DATE OF ADMISSION:[01/02/2025] DATE OF DISCHARGE:[01/07/2025] DISPOSITION:[Home. [facility] for IV antibiotics] CONDITION:[Medically cleared] CONSULTANTS:[ID, pulmonology] FOLLOW UP APPOINTMENTS:[PCP 2 to 3 days. Pulmonology within 1 to 2 weeks] PROCEDURES:[None] IMAGING: report attached to summary MICROBIOLOGY: report attached to summary ACTIVITY:[Independent] HOME MEDICATIONS: see [facility] NEW MEDICATIONS:[Zosyn as prescribed by ID for [facility] IV antibiotics. Benzonat 200 mg t.i.d., ipratropium, prednisolone 40 mg p.o. daily x5 days. Thiamine 100 mg] EMERGENCY INSTRUCTIONS: The patient was instructed to present to the nearest Emergency departmentr or call 911 once their symptoms will return or worsen Editor Sound(s): Patient is 41 years old female with past medical history of asthma, uncontrolled was admitted to the medical-surgical unit with diagnosis of acute asthma exac erbation, acute influenza bronchitis, Streptococcus pharyngitis and dehydration. Throughout the hospitalization chest x-ray was performed cardiomegaly clear lungs. Blood culture after four days x2 was negative. Sputum culture grew E coli. Per ID patient to be discharged to [facility] for IV antibiotics Zosyn times 10 days. Patient was cleared by the senior qa engineer follow-up in two weeks for sleep apnea. Patient also will be taper down from methylprednisolone to prednisolone 40 mg daily x5 days as recommended per senior qa engineer. Follow up with the PCP in 2 to 3 days. Procedure(s): REVIEW OF SYSTEMS CONSTITUTIONAL: Denies any fever, chills, generalized weakness NEUROLOGICAL: Denies headache, amaurosis fugax, motor weakness, sensory deficit, vertigo/spinning sensation, gait abnormalities, or tremors. ENT: No hearing loss, otalgia, otorrhea, rhinitis, rhinorrhea, hoarseness, or sore throat. CARDIOVASCULAR: Denies any exertional angina, dyspnea on exertion, orthopnea, paroxysmal nocturnal dyspnea, palpitations, life-threatening arrhythmias, claudication. PULMONARY: Productive cough . Denies any shortness of breath. SLEEP: Denies morning headaches, daytime somnolence or napping. Denies difficulty falling asleep, staying asleep, waking from sleep. Denies knowledge of snoring. GASTROINTESTINAL: Denies any type of dysphagia to either liquids or solids. D enies nausea, vomiting, pyrosis, early satiety, abdominal pain, diarrhea, constipation, or changes in stool consistency or caliber. Denies coffee-ground emesis, hematemesis, hematochezia, or melanotic stools. GENITOURINARY: Denies frequency, urgency, nocturia, hematuria or incontinence (Storage/Irritative symptoms.) Low urinary stream, straining to void, urinary intermittency or hesitancy, splitting of the voiding stream, terminal dribbling. ENDOCRINOLOGIC: Denies polyuria, polydipsia, polyphagia or heat/cold intolerances. HEMATOLOGIC: Denies thrombophilia/previous clots, or coagulopathy/bleeding disorders. ONCOLOGIC: Denies personal history of malignancy. DERMATOLOGIC: Denies rashes or pruritus. PSYCHIATRIC: Denies any suicidal or homicidal ideation. Denies hallucinations. PHYSICAL EXAM GENERAL APPEARANCE: The patient is awake, alert, and oriented, in no acute cardiopulmonary distress. NEUROLOGICAL: Cranial nerves II-XII grossly intact. Motor is 5/5 in bilateral upper and lower extremities proximal to distal. No sensory deficits. HEENT: Face is symmetric. Pupils are equal and reactive. Extraocular movements are intact. NECK: Supple. No JVD. No thyromegaly. No submental, submandibular, pre- /postauricular, occipital or supraclavicular lymphadenopathy. CHEST: Normal chest expansion. No Telemetry. LUNGS: Rhonchorous breath sounds with mild wheezing noted of the bilateral lung bases which has improved from the previous days CARDIOVASCULAR: Regular. S1 and S2 normal. No appreciable rubs, murmurs or gallops. ABDOMEN: Soft, nontender, and nondistended. There is no rebound, voluntary guarding, or rigidity. : Deferred. No Saenz. EXTREMITIES: Non-edematous and not cyanotic. No clubbing. Good capillary refill. SKIN: No skin breakdown. Assessment/Plan: ASSESSMENT: Acute hypoxic respiratory failure secondary to Acute asthma exacerbation/acute influenza bronchitis, POA Acute asthma exacerbation POA Acute influenza bronchitis, POA Streptococcal pharyngitis, POA Influenza A positive POA Superimposed bacterial pneumonia, ESBL E coli, POA Sputum culture growing ESBL E coli Acute Dehydration, POA improving Undiagnosed obstructive sleep apnea, POA Morbid Obesity, POA History of uncontrolled asthma, POA Home Medications: Active Scripts Prednisone (Prednisone) 5 Mg Tablet, 1 TAB PO BID for 7 Days, #14 TAB 0 Refills Prov:KAREN COLES MD 01/02/25 Oseltamivir Phosphate (Tamiflu) 75 Mg Cap, 1 CAP PO BID for 5 Days, #10 CAP 0 Refills Prov:KAREN COLES MD 01/02/25 Amoxicillin/Potassium Clav (Amox Tr-K Clv 875-125 mg Tab) 875 Mg-125 Mg Tablet, 1 TAB PO BID for 10 Days, #20 TAB 0 Refills Prov:KAREN COLES MD 01/02/25 Benzonatate (Tessalon Perles) 100 Mg Cap, 100 MG PO TID for cough for 10 Days, #30 CAP 0 Refills Prov:JOSE CRAWLEY 09/02/24 Methylprednisolone (Medrol) 4 Mg Tab.ds.pk, 1 TAB PO AD for 6 Days, #21 TAB 0 Refills 6 on day 1 then reduce by one tablet daily until gone Prov:JOSE CRAWLEY 09/02/24 Azithromycin (Azithromycin) 250 Mg Tablet, 1 TAB PO AD for 5 Days, #6 TAB 0 Refills 2 the first day followed by 1 for days 2-5 Prov:JOSE CRAWLEY 09/02/24 Phenazopyridine HCl (Pyridium) 200 Mg Tab, 200 MG PO TIDP PRN for bladder pain, #9 TAB 0 Refills TAKE WITH FOOD TO PREVENT STOMACH UPSET. Prov:ASHUTOSH BUSBY MD 08/10/22 Nitrofurantoin/Nitrofuran Mac (Macrobid) 100 Mg Cap, 1 CAP PO BID for 7 Days, #14 CAP 0 Refills Prov:ASHUTOSH BUSBY MD 08/10/22 Clindamycin HCl (Clindamycin HCl) 300 Mg Capsule, 1 CAP PO QID for 10 Days, #40 CAP 0 Refills Prov:YASMEEN CELESTIN 07/02/22 Cyclobenzaprine HCl (Cyclobenzaprine HCl) 10 Mg Tablet, 10 MG PO TIDP, #20 TAB 0 Refills Prov:JOHN ANDRE MD 10/21/21 Meloxicam (Mobic) 7.5 Mg Tablet, 7.5 MG PO DAILY, #10 TAB 0 Refills Prov:JOHN ANDRE MD 10/21/21 Time spent arranging discharge: 31-60 minutes ATTESTATION BY PHYSICIAN I have seen and examined the patient. I reviewed the documentation, medical decision making, and treatment plan as noted by the mid-level provider above. I agree with the findings and plan of care. Rebel Martinez IV, MD, KATARZYNA B APRN Jan 07, 2025 13:26
--- NOTE | 2025-01-07 13:34 | NUR ---
DC PLAN 01/08/25 AT 8AM [address] [address] . PATIENT ACCEPTED. INFO GIVEN TO PATIENT INCLUDING MAP, ADDRESS, PHONE NUMBER NURSE NOTIFIED. Addendum: 01/07/25 at 1336 by MILTON LEE RN CM Amended: Links added.
--- NOTE | 2025-01-07 14:11 | PN ---
[facility] PROGRESS NOTE Date Patient Seen: Jan 07, 2025 Time of Visit: 14:11 Supervising Physician: Dr. Last Primary Care Physician: [ ] Outpatient Specialists: [ ] Inpatient Consults: SAMANTHA PROBLEM LIST: 1. ACUTE ON CHRONIC ASTHMA EXACERBATION 2. MORBID OBESITY 3. INFLUENZA A Positive POA 4. Strep group A positive POA ESBL E coli cystitis, on meropenem Plan Summary: Supplemental oxygen as needed Wean off as tolerated Duo nebs as needed BiPAP nightly and p.r.n. Begin to titrate high-dose steroids Continue IV antibiotics Montelukast 10 daily 6 minute walk test prior to discharge Outpatient follow up in Pulmonary Clinic for AMOL evaluation and treatment INTERVAL HISTORY: Patient was evaluated at bedside, she is on room air today, states she is feeling much better. She currently continues on Zosyn for ESBL E coli. White count is 9.4 today. Patient is currently having outpatient antibiotics arranged with [facility]. She is cleared from a pulmonary standpoint to discharge once this is arranged. REVIEW OF SYSTEMS: 12 point ROS reviewed with patient. Pertinent positives mentioned above. Otherwise negative. PHYSICAL EXAM: GENERAL: alert, weak, awake oriented x 3 HEENT: EOMI, Sclera non icteric, moist mucosa NECK: Supple, no JVD, trachea midline LUNGS: Clear breath sounds bilaterally. No wheezes HEART: Regular rate and rhythm. Normal S1 and S2, without murmurs ABD: Abdomen soft, nontender. Bowel sounds present EXT: No clubbing cyanosis or edema NEURO: Alert and oriented to person, follows commands Vital Signs (last 8hr) Date Time Temp Pulse Resp B/P (MAP) Pulse Ox O2 Delivery O2 Flow Rate FiO2 01/07/25 12:00 97.9 52 22 112/63 99 01/07/25 11:35 64 18 21 65 19 21 01/07/25 11:15 50 19 01/07/25 11:15 50 19 N/A Room Air 21 01/07/25 08:23 98.1 44 22 117/66 91 01/07/25 08:00 97 Room Air* 0 21 01/07/25 07:01 52 19 01/07/25 07:00 52 19 N/A Room Air 21 LABS: Hematology Labs: Test 01/07/25 03:06 Range/Units White Blood Count 9.4 4.8-10.8 K/uL Red Blood Count 4.28 4.00-5.50 MIL/uL Hemoglobin 12.2 12.0-16.0 g/dL Hematocrit 38.2 36-48 % Mean Corpuscular Volume 89.3 79-99 fL Mean Corpuscular Hemoglobin 28.5 27.0-33.0 pg Mean Corpuscular Hemoglobin Concent 31.9 L 32.0-36.0 g/dL Red Cell Distribution Width 13.4 11.0-15.5 % Platelet Count 225 130-400 K/uL Mean Platelet Volume 10.1 7.5-10.5 fL Immature Granulocyte % (Auto) 5.4 H 0-1 % Neutrophils (%) (Auto) 59.4 40.0-77.0 % Lymphocytes (%) (Auto) 28.3 21.0-51.0 % Monocytes (%) (Auto) 6.6 3.0-13.0 % Eosinophils (%) (Auto) 0.0 0.0-8.0 % Basophils (%) (Auto) 0.3 0.0-5.0 % Neutrophils # (Auto) 5.6 1.8-7.7 K/uL Lymphocytes # (Auto) 2.7 1.0-4.8 K/uL Monocytes # (Auto) 0.6 0.1-1.0 K/uL Eosinophils # (Auto) 0.00 0.00-0.70 K/uL Basophils # (Auto) 0.03 0.00-0.20 K/uL Absolute Immature Granulocyte (auto 0.51 0-1 K/uL Nucleated Red Blood Cells 0.4 H 0.0-0.19 % Chemistry Labs: Test 01/07/25 11:19 01/07/25 03:06 Range/Units Whole Blood Glucose 139 H 70-110 MG/DL Sodium Level 142 136-145 mmol/L Potassium Level 4.1 3.5-5.1 mmol/L Chloride Level 107 101-111 mmol/L Carbon Dioxide Level 33 H 21-32 mmol/L Blood Urea Nitrogen 21 H 7-18 mg/dL Creatinine 0.9 0.5-1.0 mg/dL Glomerular Filtration Rate Calc 79 >90 mL/min Random Glucose 117 H 70-105 mg/dL Total Calcium 8.1 L 8.5-10.1 mg/dL Magnesium Level 2.30 1.80-2.40 mg/dL Total Bilirubin 0.3 0.2-1.0 mg/dL Aspartate Amino Transf (AST/SGOT) 67 H 10-37 U/L Alanine Aminotransferase (ALT/SGPT) 147 H 12-78 U/L Alkaline Phosphatase 65 50-136 U/L Total Protein 6.3 6.0-8.3 g/dL Albumin 2.7 L 3.5-5.0 g/dL Coagulation Labs: Test 01/06/25 15:37 Range/Units Prothrombin Time 10.1 9.6-11.6 SEC Prothromb Time International Ratio <= 0.93 0.85-1.15 DIAGNOSTICS / RADIOLOGY RESULTS: [ ] PLAN Continue with antibiotic therapy Continue with nebulizers continue with Tamiflu NEURO: Minimize central acting medications as possible. Maintain fall precautions, adequate lighting during the day PULMONARY: Supplemental 02 as needed. Maintain aspiration precautions at all times CARDIOVASCULAR: Follow hemodynamics. Vital signs per facility protocol GI & NUTRITION: Continue with nutritional support. Continue stool softeners and laxatives as needed. KIDNEYS & ELECTROLYTES: Strict monitoring of intake, output and overall fluid balance. Avoid nephrotoxic medications to the extent possible. Medications to be dosed according to renal function. Monitor electrolytes and replace as needed ENDOCRINE: Maintain blood glucose between 100-180 at all times. Hypoglycemia protocol in place INFECTIOUS DISEASE: Trend temperature, WBC and procalcitonin level Follow cultures, deescalate antibiotics as soon as possible. Panculture if new onset fever ONCOLOGY/HEMATOLOGY/COAGULATION: Monitor for s/s of bleeding Monitor hemoglobin, coagulation studies as needed SKIN: Pressure ulcer prevention per facility protocol Specialty mattress ORTHO/REHAB: Continue PT/OT Prophylaxis: Continue GI and DVT prophylaxis Code Status: Full Resuscitation Disposition: As per attending LOTUS PIERRE Jan 07, 2025 14:11
--- NOTE | 2025-01-07 22:22 | PN ---
INFECTIOUS DISEASE PROGRESS NOTE Date of Service: Jan 07, 2025 SUBJECTIVE: Patient was seen and examined at bedside in room 424. Patient is afebrile, temperature is 97.9 and the WBC of 9.4. Patient continues on Zosyn IV and Tamiflu p.o. Patient had a 6 minute walk and did not meet criteria for home oxygen. Patient has been approved to [facility] for outpatient IV antibiotics and will be discharged today. PHYSICAL EXAM EYES: Anicteric. Pupils equal and reactive. HENT: No oral thrush seen, moist Oral mucosa. NECK: Supple, no JVD or thyromegaly. LUNGS: Productive cough. Wheezing, Crackles on auscultation. CARDIOVASCULAR: S1, S2 regular. No murmur heard. ABDOMEN: Non tender, bowel sounds present, no organomegaly. Obese but soft CENTRAL NERVOUS SYSTEM: Awake, alert, oriented x 3. SKIN: No rashes, no swelling. LYMPHATICS: No peripheral lymphadenopathy. MUSCULOSKELETAL: No joint swelling, erythema or tenderness. EXTREMITIES: No cyanosis or clubbing BACK: No deformity, no pressure ulcer. GENITOURINARY: No dysuria or hematuria Vital Sign (Last 12 Hours) 01/07/25 01/07/25 01/07/25 01/07/25 11:15 11:15 11:35 12:00 Temp 97.9 Pulse 50 50 64 52 65 Resp 19 19 18 22 19 B/P (MAP) 112/63 Pulse Ox 99 O2 Delivery N/A Room Air FiO2 21 21 21 01/07/25 01/07/25 16:59 19:16 Temp 98.1 Pulse 59 57 Resp 16 19 B/P (MAP) 112/65 Pulse Ox 97 LABS: Laboratory: Test 01/07/25 15:49 01/07/25 03:06 01/06/25 15:37 Range/Units Whole Blood Glucose 199 H 70-110 MG/DL White Blood Count 9.4 4.8-10.8 K/uL Red Blood Count 4.28 4.00-5.50 MIL/uL Hemoglobin 12.2 12.0-16.0 g/dL Hematocrit 38.2 36-48 % Mean Corpuscular Volume 89.3 79-99 fL Mean Corpuscular Hemoglobin 28.5 27.0-33.0 pg Mean Corpuscular Hemoglobin Concent 31.9 L 32.0-36.0 g/dL Red Cell Distribution Width 13.4 11.0-15.5 % Platelet Count 225 130-400 K/uL Mean Platelet Volume 10.1 7.5-10.5 fL Immature Granulocyte % (Auto) 5.4 H 0-1 % Neutrophils (%) (Auto) 59.4 40.0-77.0 % Lymphocytes (%) (Auto) 28.3 21.0-51.0 % Monocytes (%) (Auto) 6.6 3.0-13.0 % Eosinophils (%) (Auto) 0.0 0.0-8.0 % Basophils (%) (Auto) 0.3 0.0-5.0 % Neutrophils # (Auto) 5.6 1.8-7.7 K/uL Lymphocytes # (Auto) 2.7 1.0-4.8 K/uL Monocytes # (Auto) 0.6 0.1-1.0 K/uL Eosinophils # (Auto) 0.00 0.00-0.70 K/uL Basophils # (Auto) 0.03 0.00-0.20 K/uL Absolute Immature Granulocyte (auto 0.51 0-1 K/uL Nucleated Red Blood Cells 0.4 H 0.0-0.19 % Sodium Level 142 136-145 mmol/L Potassium Level 4.1 3.5-5.1 mmol/L Chloride Level 107 101-111 mmol/L Carbon Dioxide Level 33 H 21-32 mmol/L Blood Urea Nitrogen 21 H 7-18 mg/dL Creatinine 0.9 0.5-1.0 mg/dL Glomerular Filtration Rate Calc 79 >90 mL/min Random Glucose 117 H 70-105 mg/dL Total Calcium 8.1 L 8.5-10.1 mg/dL Magnesium Level 2.30 1.80-2.40 mg/dL Total Bilirubin 0.3 0.2-1.0 mg/dL Aspartate Amino Transf (AST/SGOT) 67 H 10-37 U/L Alanine Aminotransferase (ALT/SGPT) 147 H 12-78 U/L Alkaline Phosphatase 65 50-136 U/L Total Protein 6.3 6.0-8.3 g/dL Albumin 2.7 L 3.5-5.0 g/dL Prothrombin Time 10.1 9.6-11.6 SEC Prothromb Time International Ratio <= 0.93 0.85-1.15 ASSESSMENT: Gram-negative Pneumonia. Infection with multidrug resistant organism, E coli. Acute on chronic asthma exacerbation. Influenza viral infection type A Streptococcus viral infection group A. Morbid obesity. PLAN: Continue on Zosyn. Continue Tamiflu. Patient passed a 6 minute walk. Patient was approved to [facility] for outpatient IV antibiotics and will be discharged today. This case was reviewed and discussed with my supervising physician and the above assessment and plan was formulated and agreed upon. ATTESTATION BY PHYSICIAN I have seen and examined the patient. I reviewed the documentation, medical decision making, and treatment plan as noted by the mid-level provider above. I agree with the findings and plan of care. NEETA KIRK MD, MIRTA L [facility] Jan 07, 2025 22:22
== END 2025-01-07 19:40 | disposition home or self-care (01) | DRG 177 ==
LOC: EDH 06:49 → EDHIP 16:05 → 4DH 20:09
PROVIDERS: ADMIT Internal Medicine; ATTEND Internal Medicine
PROC: 5A09357 Assistance with Respiratory Ventilation, Less than 24 Consecutive Hours, Continuous Positive Airway Pressure (ICD-10-PCS; principal; 2025-01-03)
PROC: 5A09357 Assistance with Respiratory Ventilation, Less than 24 Consecutive Hours, Continuous Positive Airway Pressure (ICD-10-PCS; 2025-01-04)
PROC: 5A09357 Assistance with Respiratory Ventilation, Less than 24 Consecutive Hours, Continuous Positive Airway Pressure (ICD-10-PCS; 2025-01-05)
PROC: 05HY33Z Insertion of Infusion Device into Upper Vein, Percutaneous Approach (ICD-10-PCS; 2025-01-05)
PROC: 3E03329 Introduction of Other Anti-infective into Peripheral Vein, Percutaneous Approach (ICD-10-PCS; 2025-01-05)
DX: J10.08 Influenza due to other identified influenza virus with other specified pneumonia (principal); J96.01 Acute respiratory failure with hypoxia; J15.69 Pneumonia due to other Gram-negative bacteria; Z16.12 Extended spectrum beta lactamase (ESBL) resistance; Z16.24 Resistance to multiple antibiotics; J45.901 Unspecified asthma with (acute) exacerbation; J02.0 Streptococcal pharyngitis; E66.01 Morbid (severe) obesity due to excess calories; E86.0 Dehydration; N30.90 Cystitis, unspecified without hematuria; F41.9 Anxiety disorder, unspecified; B96.20 Unspecified Escherichia coli [E. coli] as the cause of diseases classified elsewhere; Z83.3 Family history of diabetes mellitus; Z98.891 History of uterine scar from previous surgery; Z68.34 Body mass index [BMI] 34.0-34.9, adult
CPT/HCPCS: 36415; 36600; 71045; 80048; 80053; 81003; 82435; 82550; 82803; 82947; 82948; 83036; 83605; 83735; 83880; 84132; 84145; 84295; 84443; 84484; 85018; 85025; 85027; 85610; 85651; 85730; 86140; 87040; 87071; 87086; 87186; 87205; 87426; 87804; 87880; 93005; 94640; 94660; 94667; 94668; 94760; 99285; G0378; J0696; J1650; J1815; J2470; J2543; J2919; J3410; J3411; J7030